=== PATIENT | female | born 1930 | race Caucasian/White ===

== ENCOUNTER 2018-10-11 18:02 | Inpatient (IN) ==
--- NOTE | 2018-10-11 18:45 | XRay Report ---
XR chest 1V portable CLINICAL HISTORY: Atypical chest pain COMPARISON STUDY: 01/27/2016 FINDINGS: The heart is mildly enlarged. An electronic device projects over the left upper chest. Ther e is no overt failure. There is no focal pulmonary consolidation. There are no pleural effusions.[ IMPRESSION: No active disease in the chest. Electronically signed by: Navi Alegre M.D. 10/11/2018 6:44 PM
[2018-10-11 18:50] LABS: Basophils # (auto) 0.01 K/uL (0-0.2); Basophils % (auto) 0.1 %; Eosinophils # (auto) 0.09 K/uL (0-0.5); Hematocrit (blood only) 36.9 % (37-47); Hemoglobin 13.1 g/dL (12.0-16.0); Immature Granulocytes # (auto) 0.01 K/uL (0.00-0.02); Immature Granulocytes % (auto) 0.1 %; Lymphocytes % (auto) 27.5 %; Mean Corpuscular Hgb Conc 35.5 g/dL (32-36); Mean Corpuscular Volume 93.2 fL (80-100); Mean Platelet Volume 11.1 fL (7.4-10.4); Monocytes # (auto) 1.31 K/uL (0.11-0.59); Monocytes % (auto) 13.8 %; Neutrophils # (auto) 5.45 K/uL (1.4-6.5); Neutrophils % (auto) 57.5 %; Platelet Count 176 K/uL (130-400); RDW Coefficient of Variation 12.2 % (11.5-14.5); RDW Standard Deviation 41.1 fL (36.4-46.3); Red Blood Count 3.96 M/uL (4.2-5.4); White Blood Count 9.47 K/uL (4.8-10.8)
[2018-10-11 19:24] LABS: Alanine Aminotransferase 22 U/L (12-78); Albumin Globulin Ratio 0.8 (0.9-2); Albumin Level 3.5 gm/dl (3.4-5.0); Alkaline Phosphatase 70 U/L (45-117); BUN Creatinine Ratio 26.4 (10-20); Bilirubin,Total 0.5 mg/dl (0.2-1); Blood Urea Nitrogen 22 mg/dl (7-18); Calcium 9.2 mg/dl (8.5-10.1); Carbon Dioxide 25 mmol/L (21-32); Chloride 103 mmol/L (98-107); Est GFR (Non-African American) 63.9; Globulin 4.1 gm/dl (2.5-4.0); Glucose 94 mg/dl (70-99); Sodium 136 mmol/L (136-145); Total Protein 7.6 gm/dl (6.4-8.2)
[2018-10-11 19:59] LABS: Magnesium 1.7 mg/dl (1.8-2.4)
[2018-10-11] MEDS ORDERED: ONDANSETRON INJ 2 MG/ML 2 ML VIAL IV PRN (21:16)
[2018-10-11] MEDS ORDERED: GABAPENTIN 400 MG CAP PO SCH (21:16)
[2018-10-11] MEDS ORDERED: MAGNESIUM HYDROXIDE SUSP 30 ML UDC PO PRN (21:16)
[2018-10-11] MEDS ORDERED: SODIUM CHLORIDE 0.9% 1000ML 1,000 ML IV SCH (21:16)
[2018-10-11] MEDS ORDERED: POLYETHYLENE (MIRALAX) 17 GM PACK PO PRN (21:16)
[2018-10-11] MEDS ORDERED: ALBUTEROL HFA 8 GM INHALER INH PRN (21:16)
[2018-10-11] MEDS ORDERED: ALUMINUM/MAGNESIUM SUSP 30 ML UDC PO PRN (21:16)
[2018-10-11] MEDS ORDERED: Heparin IV Low Dose *NO* Bolus IV ONE (21:30)
--- NOTE | 2018-10-11 21:37 | History & Physical Report ---
Date of Service October 11, 2018 Assessment & Plan (1) Darren-tachy syndrome: * Patient has been having tachyarrhythmias for the past 18 months or so * Holter monitor was placed as an outpatient and Dr. To's office * Cardiology will be consulted for consideration of pacemaker * Intermittent rhythm appears to be atrial fibrillation. We will start a weight-based heparin drip pending cardiology evaluation * Patient with bradycardia into the 40s so at this time no beta-merlyn will be given * Hemodynamically stable * Patient is symptomatic with lightheadedness and dizziness as well as weakness * Admit to telemetry and follow expectantly (2) Weakness: * Most likely secondary to cardiac arrhythmia * Will follow with cardiology * Patient will need PT/OT eval's prior to discharge * At this point there are no neurological deficits on exam and no apparent metabolic deficiencies * Follow clinically (3) GERD (gastroesophageal reflux disease): * Continue PPI and H2 merlyn * Patient currently asymptomatic (4) Dyslipidemia: * Continue atorvastatin (5) HTN (hypertension): * Blood pressure is probably well controlled per daughter * No outpatient medications are prescribed * We will follow vital signs while inpatient (6) Asthma: * No hypoxia or bronchospasms at the time of my examination * We will continue with albuterol and Flonase at home doses * Patient denies following with a web engineer * Follow clinically (7) DVT prophylaxis: * Heparin drip for cardiac arrhythmia * JOSE mike and SCDs ordered Please refer to Dr. Vega's addendum for any further recommendations. History of Present Illness Chief Complaint: Lightheadedness and dizziness Primary Care Provider: Annika To Attending: Dr. Vega This is a very pleasant 88-year-old female that has a past medical history including asthma, spinal stenosis, GERD, osteoporosis, dyslipidemia, osteoarthritis, sacroiliac inflammation, and hypertension. She presents today after having episodes of weakness and lightheadedness. Her daughter checked her heart rate and it was in the 180s at home. She was also noted to have bradycardia as low as the 40s. She had similar results in the emergency department. These seem to be exacerbated with activity. She has been followed by Dr. Adithya To in the outpatient setting and recently had a Holter monitor placed which has not been interrogated at this point. The daughter reports that these episodes of bradycardia and tachycardia began in 2017. Primarily she has had periods of bradycardia. The patient denies any chest pain or tightness. She has no back pain. She denies any history of atrial fibrillation or other conduction errors. She has never seen a machine bunch maker in the past but is scheduled to see Dr. Hammer at [facility]. The patient denies any nausea or vomiting. She has no diarrhea. She has no recent illness. She denies any ethanol use. She has no tobacco abuse history. 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 She does her own shopping and does notice that at [facility] she has h ad to rest because of lightheadedness. She has no other acute complaints at this time. Allergies Allergy/AdvReac Type Severity Reaction Status Date / Time mivacurium Allergy Unknown . Verified 10/11/18 19:00 Home Medications Home Medications Medication Instructions Recorded Confirmed Type Energy Focus 2 tab PO DAILY 10/11/18 10/11/18 History albuterol sulfate [ProAir HFA] 2 puff INHALATION Q6H PRN 10/11/18 10/11/18 History allopurinol 100 mg PO DAILY 10/11/18 10/11/18 History aspirin [Aspirin Low Dose] 81 mg PO DAILY 10/11/18 10/11/18 History atorvastatin 40 mg PO DAILY 10/11/18 10/11/18 History benzonatate 100 - 200 mg PO TID PRN 10/11/18 10/11/18 History brimonidine-timolol [Combigan] 1 drp OPHTHALMIC (EYE) BID 10/11/18 10/11/18 History cholecalciferol (vitamin D3) 2,000 unit PO DAILY 10/11/18 10/11/18 History diclofenac sodium 2 g TOPICAL QID 10/11/18 10/11/18 History fluticasone propionate 2 spray INTRANASAL DAILY 10/11/18 10/11/18 History gabapentin 400 mg PO BID 10/11/18 10/11/18 History gabapentin 800 mg PO HS 10/11/18 10/11/18 History omeprazole 40 mg PO DAILY 10/11/18 10/11/18 History prednisolone acetate 1 drp OPHTHALMIC (EYE) DAILY 10/11/18 10/11/18 History prednisone 5 mg PO DAILY 10/11/18 10/11/18 History ranitidine HCl 150 mg PO BID 10/11/18 10/11/18 History triamcinolone acetonide 1 applic TOPICAL BID PRN 10/11/18 10/11/18 History Past Med/Surg History Medical History Asthma (Chronic) "mild persistent" Spinal stenosis (Chronic) GERD (gastroesophageal reflux disease) (Chronic) Osteoporosis (Chronic) Dyslipidemia (Chronic) Urinary incontinence (Chronic) Osteoarthritis (Chronic) Sacroiliac inflammation (Chronic) HTN (hypertension) (Chronic) Surgical History H/O breast biopsy (Chronic) "benign" H/O colonoscopy (Chronic) S/P partial hysterectomy (Chronic) Social History Contact Center Consultant Required: No Beliefs That Will Affect Care: None Current Living Situation: Alone Current Living Situation Comment: daughter does heavy cleaning current occupational status: unemployed Other Information That Helps Us Care for You: No Feels Safe at Home: Yes Safety Concerns: Feels Safe At This Time Smoking Status: Never smoker Hx Alcohol Use: No Hx Substance Use: No well-balanced diet: daily or most days during the past year weight has: remained stable Review of Systems All systems reviewed & are unremarkable except as noted in HPI & below Physical Exam Vital Signs (Past 24 Hours): Last Vital Signs Temp 36.4 C L 10/11/18 18:03 Pulse 87 10/11/18 21:06 Resp 27 H 10/11/18 21:06 BP 112/79 10/11/18 21:06 Pulse Ox 94 10/11/18 21:06 Physical Exam: GENERAL : No acute distress EYES: No icterus, gaze conjugate. The right pupil is larger than the left pupil. 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 No facial droop NECK: Supple LUNGS: CTA B/L, no wheezes, rales or rhonchi HEART: Regular, tachycardic in the 140s at the time of my exam with what appears to be intermittent atrial fibrillation. ABDOMEN: Soft, NT, ND, BS Present EXTREMITIES: No LE edema, pedal pulses intact NEURO: A&OX3. No facial droop. PERRLA. No pronator drift. Right pupil is 3 mm left pupil is 2 mm. Patient has no vision in the left eye. Tongue is midline. Strength is equal and appropriate with upper and lower extremities bilaterally. Gait and Romberg are deferred. Results & Data Laboratory Results Abnormal lab results 10/11/18 10/11/18 10/11/18 Range/Units 18:40 18:40 19:30 RBC 3.96 L (4.2-5.4) M/uL Hct 36.9 L (37-47) % MPV 11.1 H (7.4-10.4) fL [place] # (Auto) 1.31 H (0.11-0.59) K/uL BUN 22 H (7-18) mg/dl BUN/Creatinine Ratio 26.4 H (10-20) Magnesium 1.7 L (1.8-2.4) mg/dl Globulin 4.1 H (2.5-4.0) gm/dl Albumin/Globulin Ratio 0.8 L (0.9-2) Diagnostic Findings XR chest 1V portable CLINICAL HISTORY: Atypical chest pain COMPARISON STUDY: 01/27/2016 FINDINGS: The heart is mildly enlarged. An electronic device projects over the left upper chest. There is no overt failure. There is no focal pulmonary consolidation. There are no pleural effusions.[ IMPRESSION: No active disease in the chest. Electronically signed by: Navi Alegre M.D. 10/11/2018 6:44 PM Code Status & VTE Plan Code Status Level I full code VTE Prophylaxis Plan VTE Prophylaxis will be ordered: Yes Reason for no VTE mechanical prophylaxis: Treatment not indicated Critical Care Time Critical Care Time: No Supervising Physician Co-Signing Physician Notes Care coordinated with Isaac Spencer PA-C. Agree with able note. Patient seen and examined. Please refer to her notes for full details. Vital signs reviewed. Physical exam: General exam: Alert and oriented. Not in acute distress. CVS: S1 and S2 heard, bradycardia regular rate , no murmurs. RS: Clear to auscultation, no wheezing or crackles. ABD: Soft, bowel sounds present, nontender, no distention. MANAGING CONSULTANT CLINICAL PROFESSOR: Nonfocal. EXT: No edema, no erythema. Labs: Reviewed. Assessment and plan: 88F presents with ongoing lightheadedness and weakness. Having bradycardia for sometime.Recently was placed on holter by PCP. TOday was feeling lightheaded and when daughter checked her pulse it was in 160's. Currently Heart rates in 50's. Tachy Darren syndrome will monitor in tele plan top give iv adenosine if becomes tachycardic echo cardiology consulted for possible pacemaker. HTN currently not on any meds will monitor Other diagnosis and plan of care as per Isaac Spencer PA-C. Shukri chandler MD.
[2018-10-11] MEDS: MAGNESIUM SULFATE / D5W 1 GM/100 ML BAG IV SCH ×2 (21:56→22:34)
[2018-10-11] MEDS: GABAPENTIN 400 MG CAP PO SCH (21:57)
[2018-10-11] MEDS ORDERED: COMBIGAN~ORDER AWAITING ACTION SCH (22:00)
[2018-10-11] MEDS ORDERED: HEPARIN 25000 UNIT/500 ML D5W IV ONE (22:31)
[2018-10-11] MEDS: Heparin Adult LOW DOSE Wt-Based Dextrose 5% 25,000 units/500 mL IV SCH ×2 (22:48→23:05)
[2018-10-11 23:07] LABS: INR 1.1 (0.9-1.1); Partial Thromboplastin Time 26.1 Seconds (21.0-31.0); Prothrombin Time 11.5 Seconds (9.0-12.0)
--- NOTE | 2018-10-12 00:28 | Emergency Department Note ---
Entered by Eren Yi acting as a scribe for Massimo Mirza MD History of Present Illness General Chief complaint: Cardiac Assessment Stated complaint: TACHYCARDIA, CARDIAC ASSESSMENT Time Seen by Provider: 10/11/18 18:07 Source: patient and family Limitations: no limitations History of Present Illness Provider complaint: Tachycardia Onset (ago): hour(s) Location: chest Pain Consistency: + intermittent Quality: + other (tachycardia) Associated symptoms: no chest pain and no shortness of breath Treatments prior to arrival: none The patient is an 88 year old female who presents to the Emergency Room with complaints of intermittent bouts of tachycardia that began this afternoon. The patient's daughter notes that the patient has been dealing with bradycardia and hypotension for the past several weeks. She saw her PCP at the beginning of last week and she was instructed to stop one of her blood pressure medications. The daughter cannot remember the name of the medicine that was stopped. She notes that the patient has been complaining of dizziness for the past couple of weeks, and the patient herself states that she has been feeling "weak and tired" today. She does endorse feeling near syncopal as well. Upon EMS arrival they found the patient to be tachycardic into the 170s and appeared to be in a SVT. As the patient was on the monitor in the ED her pulse was jumping from the 60s to 170s randomly. When her heart beat was tachycardic the patient was asked if she felt different and she states "I just feel tired." The daughter adds that the patient had a gout flair recently and was started on Gout medication and Prednisone. She is currently wearing a Halter Monitor as well. She has no history of cardiac disease. Home Medications Home Medications Medication Instructions Recorded Confirmed Type Energy Focus 2 tab PO DAILY 10/11/18 10/11/18 History albuterol sulfate [ProAir HFA] 2 puff INHALATION Q6H PRN 10/11/18 10/11/18 History allopurinol 100 mg PO DAILY 10/11/18 10/11/18 History aspirin [Aspirin Low Dose] 81 mg PO DAILY 10/11/18 10/11/18 History atorvastatin 40 mg PO DAILY 10/11/18 10/11/18 History benzonatate 100 - 200 mg PO TID PRN 10/11/18 10/11/18 History brimonidine-timolol [Combigan] 1 drp OPHTHALMIC (EYE) BID 10/11/18 10/11/18 History cholecalciferol (vitamin D3) 2,000 unit PO DAILY 10/11/18 10/11/18 History diclofenac sodium 2 g TOPICAL QID 10/11/18 10/11/18 History fluticasone 2 spray INTRANASAL DAILY 10/11/18 10/11/18 History gabapentin 400 mg PO BID 10/11/18 10/11/18 History gabapentin 800 mg PO HS 10/11/18 10/11/18 History omeprazole 40 mg PO DAILY 10/11/18 10/11/18 History prednisolone acetate 1 drp OPHTHALMIC (EYE) DAILY 10/11/18 10/11/18 History prednisone 5 mg PO DAILY 10/11/18 10/11/18 History ranitidine HCl 150 mg PO BID 10/11/18 10/11/18 History triamcinolone acetonide 1 applic TOPICAL BID PRN 10/11/18 10/11/18 History Allergies Allergy/AdvReac Type Severity Reaction Status Date / Time mivacurium Allergy Unknown . 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 and A total of 10 systems reviewed and were otherwise negative Physical Exam Vital Signs Vital Signs - 24 hr 10/11/18 18:03 10/11/18 18:28 10/11/18 19:00 Temperature 36.4 C L Temperature Source Oral Sepsis Recent Fever Within 48 Hours No Sepsis Action Taken by Nursing No Action Required Pulse Rate 70 Pulse Rate [Left Finger] 58 L Pulse Rhythm [Left Finger] Pulse Strength [Left Finger] Respiratory Rate 16 20 Respiratory Effort / Characteristics Non-Labored Respiratory Depth Normal Respiratory Pattern Blood Pressure 193/79 H Blood Pressure [Left Arm] 135/77 Blood Pressure [Right Arm] Blood Pressure Mean 117 Blood Pressure Mean [Left Arm] 96 Blood Pressure Mean [Right Arm] Blood Pressure Position [Left Arm] Blood Pressure Position [Right Arm] Pulse Oximetry 99 99 96 Oxygen Delivery Method Room Air Room Air Room Air 10/11/18 19:17 10/11/18 20:00 10/11/18 20:32 Temperature Temperature Source Sepsis Recent Fever Within 48 Hours Sepsis Action Taken by Nursing Pulse Rate Pulse Rate [Left Finger] 60 62 Pulse Rhythm [Left Finger] Pulse Strength [Left Finger] Respiratory Rate 20 25 H Respiratory Effort / Characteristics Respiratory Depth Respiratory Pattern Blood Pressure Blood Pressure [Left Arm] 111/67 146/94 H Blood Pressure [Right Arm] Blood Pressure Mean Blood Pressure Mean [Left Arm] 81 111 Blood Pressure Mean [Right Arm] Blood Pressure Position [Left Arm] Blood Pressure Position [Right Arm] Pulse Oximetry 94 96 98 Oxygen Delivery Method Room Air Room Air Room Air 10/11/18 21:06 10/11/18 22:03 10/11/18 23:03 Temperature 36.4 C L 36.4 C L Temperature Source Oral Oral Sepsis Recent Fever Within 48 Hours Sepsis Action Taken by Nursing Pulse Rate 87 Pulse Rate [Left Finger] 58 L 51 L Pulse Rhythm [Left Finger] Regular Pulse Strength [Left Finger] Normal Respiratory Rate 27 H 20 18 Respiratory Effort / Characteristics Non-Labored Respiratory Depth Normal Respiratory Pattern Regular Blood Pressure 112/79 Blood Pressure [Left Arm] 121/75 Blood Pressure [Right Arm] 176/93 H 100/62 Blood Pressure Mean Blood Pressure Mean [Left Arm] 90 Blood Pressure Mean [Right Arm] 120 74 Blood Pressure Position [Left Arm] Lying Blood Pressure Position [Right Arm] Lying Lying Pulse Oximetry 94 93 95 Oxygen Delivery Method Room Air Room Air Room Air 10/12/18 00:10 Temperature Temperature Source Sepsis Recent Fever Within 48 Hours Sepsis Action Taken by Nursing Pulse Rate 53 L Pulse Rate [Left Finger] Pulse Rhythm [Left Finger] Pulse Strength [Left Finger] Respiratory Rate Respiratory Effort / Characteristics Respiratory Depth Respiratory Pattern Blood Pressure Blood Pressure [Left Arm] Blood Pressure [Right Arm] Blood Pressure Mean Blood Pressure Mean [Left Arm] Blood Pressure Mean [Right Arm] Blood Pressure Position [Left Arm] Blood Pressure Position [Right Arm] Pulse Oximetry Oxygen Delivery Method General: Non-ill appearing 88 year old female in no acute distress. HEENT: Normal cephalic atraumatic. Pupils are equal round and reactive to light. Extraocular movements are intact. Oropharynx is pink with moist mucous membranes. No swelling of the mouth lips or tongue. Neck: Supple with a midline trachea. No meningeal signs or stiffness, no JVD or bruits. No Stridor. Chest: Clear to auscultation bilaterally. No wheezes or rhonchi. No increased work of breathing. Heart: Intermittently tachycardic and then bradycardic with rapid narrow complex tachycardia on the monitor. Tachycardia resolves with cough. Abdomen: Soft nontender, nondistended without rebound guarding or rigidity. Extremities: No cyanosis clubbing or edema. No calf tenderness or assymetry. Spine/Back. Non tender to palpation. No CVA tenderness Skin: Good turgor without rashes. Neurologic exam: Cranial nerves two through 12 are intact. Motor and sensation are intact and symmetrical throughout. Course 1803: Past medical records reviewed. The patient was evaluated in room C12A, and a complete history and physical examination were performed. 1818: I reviewed the patient's case with Dr. Hou - Cardiologit. He suggests admitting the patient to medicine. He states that Adenosine could be used if needed. 1823: I reviewed the patient's case with Dr. [facility]. SHe will evaluate the patient for further management. 1918: [facility]. He will evaluated the patient for further treatment. 1920: I checked on the patient. Her heart rate is in the 60s. Administered Medications Gabapentin (Neurontin) 800 mg PO HS JACY Stop: 11/10/18 21:15 Last Admin: 10/11/18 21:57 Dose: Not Given Documented by: [id number] Sodium Chloride (Nss 1000ml) 1,000 mls @ 50 mls/hr IV .Q20H JACY Stop: 11/10/18 21:15 Last Admin: 10/11/18 21:57 Dose: 50 mls/hr Documented by: [id number] Heparin Sodium/Dextrose (Heparin Sodium/Dextrose) 25,000 units in 500 mls @ 13 mls/hr IV .Q24H JACY; Protocol Stop: 11/10/18 22:44 Last Admin: 10/11/18 23:05 Dose: 650 units/hr, 13 mls/hr Documented by: [id number] Cosigned by: [id number] Ranitidine HCl (Zantac) 150 mg PO BID JACY Stop: 11/10/18 21:15 Last Admin: 10/11/18 21:56 Dose: Not Given Documented by: [id number] Discontinued Medications Heparin Sodium/Dextrose (Heparin Sodium/Dextrose) Confirm Administered Dose 25,000 units IV .STK-MED ONE Stop: 10/11/18 22:32 Last Admin: 10/11/18 22:34 Dose: 13 units Documented by: [id number] Cosigned by: [id number] Magnesium Sulfate/Dextrose (Magnesium Sulfate / D5w) 1 gm in 100 mls @ 100 mls/hr IV Q1H JACY Stop: 10/11/18 23:44 Last Infusion: 10/11/18 23:36 Dose: 0 mls/hr Documented by: [id number] Admin: 10/11/18 22:34 Dose: 100 mls/hr Documented by: [id number] Infusion: 10/11/18 22:34 Dose: 100 mls/hr Documented by: [id number] Admin: 10/11/18 21:56 Dose: 100 mls/hr Documented by: [id number] Miscellaneous (Order Awaiting Action) 1 ea N/A QS JACY Stop: 11/10/18 21:59 Last Admin: 10/11/18 21:57 Dose: Not Given Documented by: [id number] Medical Decision Making Differential Diagnosis Differential Diagnosis includes: Tachy/Darren syndrome, SVT, arrhythmia, electrolyte or metabolic abnormality, thyroid disorder. Medical Records Attestation: I reviewed the patient's medical records. Home Medications Current Medication List: was personally reviewed by me Laboratory Data Attestation: I reviewed the patient's lab results. Result diagrams: 10/11/18 18:40 10/11/18 19:30 Lab Results 10/11/18 10/11/18 10/11/18 Range/Units 18:40 18:40 18:44 WBC 9.47 (4.8-10.8) K/uL RBC 3.96 L (4.2-5.4) M/uL Hgb 13.1 (12.0-16.0) g/dL Hct 36.9 L (37-47) % MCV 93.2 (80-100) fL MCH 33.1 (25-34) pg MCHC 35.5 (32-36) g/dL RDW Std Deviation 41.1 (36.4-46.3) fL RDW Coeff of Brayan 12.2 (11.5-14.5) % Plt Count 176 (130-400) K/uL MPV 11.1 H (7.4-10.4) fL Immature Gran % (Auto) 0.1 % Neut % (Auto) 57.5 % Lymph % (Auto) 27.5 % [place] % (Auto) 13.8 % Eos % (Auto) 1.0 % Baso % (Auto) 0.1 % Immature Gran # (Auto) 0.01 (0.00-0.02) K/uL Neut # (Auto) 5.45 (1.4-6.5) K/uL Lymph # (Auto) 2.60 (1.2-3.4) K/uL [place] # (Auto) 1.31 H (0.11-0.59) K/uL Eos # (Auto) 0.09 (0-0.5) K/uL Baso # (Auto) 0.01 (0-0.2) K/uL PT (9.0-12.0) Seconds INR (0.9-1.1) APTT (21.0-31.0) Seconds PTT Ratio Sodium 136 (136-145) mmol/L Potassium (3.5-5.1) mmol/L Chloride 103 (98-107) mmol/L Carbon Dioxide 25 (21-32) mmol/L Anion Gap 8.0 (3-11) BUN 22 H (7-18) mg/dl Creatinine 0.82 (0.6-1.2) mg/dl Est Cr Clr Drug Dosing Not Reportable Est GFR ( Amer) 74.0 Est GFR (Non-Af Amer) 63.9 BUN/Creatinine Ratio 26.4 H (10-20) Glucose 94 (70-99) mg/dl Calcium 9.2 (8.5-10.1) mg/dl Magnesium (1.8-2.4) mg/dl Total Bilirubin 0.5 (0.2-1) mg/dl AST (15-37) U/L ALT 22 (12-78) U/L Alkaline Phosphatase 70 (45-117) U/L POC Troponin I 0.03 (0-0.045) ng/ml Total Protein 7.6 (6.4-8.2) gm/dl Albumin 3.5 (3.4-5.0) gm/dl Globulin 4.1 H (2.5-4.0) gm/dl Albumin/Globulin Ratio 0.8 L (0.9-2) Lipase 89 (73-393) U/L 10/11/18 10/11/18 Range/Units 19:30 22:44 WBC (4.8-10.8) K/uL RBC (4.2-5.4) M/uL Hgb (12.0-16.0) g/dL Hct (37-47) % MCV (80-100) fL MCH (25-34) pg MCHC (32-36) g/dL RDW Std Deviation (36.4-46.3) fL RDW Coeff of Brayan (11.5-14.5) % Plt Count (130-400) K/uL MPV (7.4-10.4) fL Immature Gran % (Auto) % Neut % (Auto) % Lymph % (Auto) % [place] % (Auto) % Eos % (Auto) % Baso % (Auto) % Immature Gran # (Auto) (0.00-0.02) K/uL Neut # (Auto) (1.4-6.5) K/uL Lymph # (Auto) (1.2-3.4) K/uL [place] # (Auto) (0.11-0.59) K/uL Eos # (Auto) (0-0.5) K/uL Baso # (Auto) (0-0.2) K/uL PT 11.5 (9.0-12.0) Seconds INR 1.1 (0.9-1.1) APTT 26.1 (21.0-31.0) Seconds PTT Ratio 1.0 Sodium (136-145) mmol/L Potassium 4.0 (3.5-5.1) mmol/L Chloride (98-107) mmol/L Carbon Dioxide (21-32) mmol/L Anion Gap (3-11) BUN (7-18) mg/dl Creatinine (0.6-1.2) mg/dl Est Cr Clr Drug Dosing Est GFR ( Amer) Est GFR (Non-Af Amer) BUN/Creatinine Ratio (10-20) Glucose (70-99) mg/dl Calcium (8.5-10.1) mg/dl Magnesium 1.7 L (1.8-2.4) mg/dl Total Bilirubin (0.2-1) mg/dl AST 18 (15-37) U/L ALT (12-78) U/L Alkaline Phosphatase (45-117) U/L POC Troponin I (0-0.045) ng/ml Total Protein (6.4-8.2) gm/dl Albumin (3.4-5.0) gm/dl Globulin (2.5-4.0) gm/dl Albumin/Globulin Ratio (0.9-2) Lipase (73-393) U/L Imaging Data Attestation: I personally reviewed and interpreted this imaging study as follows: Radiologist's Impression: XR chest 1V portable CLINICAL HISTORY: Atypical chest pain COMPARISON STUDY: 01/27/2016 FINDINGS: The heart is mildly enlarged. An electronic device projects over the left upper chest. There is no overt failure. There is no focal pulmonary consolidation. There are no pleural effusions.[ IMPRESSION: No active disease in the chest. Electronically signed by: Navi Alegre M.D. 10/11/2018 6:44 PM ECG Data Attestation: I personally reviewed and interpreted this ECG as follows: Indication: tachycardia Rate (beats per minute): 142 Rhythm: other (Narrow complex tachycardia) Findings: no acute ischemic change Comparison ECG Date: from (01/26/2018) Change: the following changes noted (rate increased) Additional Comments: REPEAT EKG: Sinus bradycardia 61 bpm, no ischemic changes or ectopy. Blood Pressure Blood Pressure Findings: Normal blood pressure MDM Narrative This patient comes in as described above. He was placed in room C 12. She was brought in after feeling dizzy. She was noted to have a fast heart rate but broke out of it. It has been narrow complex about 160. Her daughter tells me that her heart rate has actually been running low and her blood pressures been low, so they stopped her KASI inhibitor. She denies any chest pain or shortness of breath. he has no focal complaints. While she was here her she was bradycardic and then she would have spells where her heart would go very fast there was narrow complex and was either rapid A. fib or possibly SVT she would pop in and out of it if she would cough or move. EKG does not suggest any ischemic changes. She has nothing suggest infection or sepsis. She has been on a Holter monitor and in fact is on one at present for the symptoms that have been yet to be defined. Chest x-ray does not suggest congestive heart failure, pneumonia, or pneumothorax. She has no electrolyte or metabolic abnormalities. I did discuss case Dr. Hou and he recommends that we admit her and do not give any ida blocking agents at this point as her underlying rhythm is bradycardic. She will likely need pacemaker from more of a tachybradycardia type issue with underlying A. fib. She was admitted for further treatment and evaluation. Impression & Plan Darren-tachy syndrome, Weakness, A-fib, Dizziness Discharge Plan Visit Data *Final* Discharge Date/Time: 10/11/18 21:06 Chief Complaint: Cardiac Assessment Stated Complaint: TACHYCARDIA, CARDIAC ASSESSMENT ED Provider: Massimo Mirza Discharge Problem: Darren-tachy syndrome, Weakness, A-fib, Dizziness Patient Disposition: Being Evaluated by Hospitalist Discharge Instructions Interventions: ED Discharge Assessment Last Done: 10/11/18 21:06 Discharge Problem: A-fib Qualifiers: Atrial fibrillation type: paroxysmal Qualified Code(s): I48.0 - Paroxysmal atrial fibrillation The scribe's documentation has been prepared under my direction and personally reviewed by me in its entirety. I confirm that the note above accurately reflects all work, treatment, procedures, and medical decision making performed by me.
[2018-10-12 06:17] LABS: Basophils # (auto) 0.01 K/uL (0-0.2); Basophils % (auto) 0.1 %; Eosinophils # (auto) 0.14 K/uL (0-0.5); Eosinophils % (auto) 1.9 %; Hematocrit (blood only) 34.9 % (37-47); Hemoglobin 12.2 g/dL (12.0-16.0); Immature Granulocytes # (auto) 0.02 K/uL (0.00-0.02); Immature Granulocytes % (auto) 0.3 %; Lymphocytes # (auto) 2.92 K/uL (1.2-3.4); Lymphocytes % (auto) 39.7 %; Mean Corpuscular Volume 93.1 fL (80-100); Mean Platelet Volume 10.8 fL (7.4-10.4); Monocytes % (auto) 12.2 %; Neutrophils # (auto) 3.37 K/uL (1.4-6.5); Neutrophils % (auto) 45.8 %; Platelet Count 192 K/uL (130-400); RDW Coefficient of Variation 12.2 % (11.5-14.5); RDW Standard Deviation 41.6 fL (36.4-46.3); Red Blood Count 3.75 M/uL (4.2-5.4); White Blood Count 7.36 K/uL (4.8-10.8)
[2018-10-12 06:56] LABS: BUN Creatinine Ratio 23.9 (10-20); Calcium 8.7 mg/dl (8.5-10.1); Creatinine Clr Calc Pharmacy 44.7 ml/min; Est GFR (African American) 85.2; Est GFR (Non-African American) 73.5; Magnesium 2.3 mg/dl (1.8-2.4); Potassium 3.8 mmol/L (3.5-5.1)
[2018-10-12 07:08] LABS: Partial Thromboplastin Ratio 1.5; Partial Thromboplastin Time 39.3 Seconds (21.0-31.0)
[2018-10-12] MEDS ORDERED: HEPARIN IV BOLUS 4,000 UNITS in SYRINGE 0 ML IV ONE (07:15)
--- NOTE | 2018-10-12 07:42 | XRay Report ---
SINGLE VIEW CHEST CLINICAL HISTORY: Atypical chest pain. FINDINGS: An AP, portable, upright chest radiograph is compared to study dated 10/11/2018. The examina tion is degraded by portable technique and patient rotation. An electronic device partially obscures the left mid chest. The heart is enlarged and there is atherosclerotic calcification of the thoracic aorta. The pulmonary vasculature is noncongested. Chronic interstitial thickening is similar to previ ous. There is mild bibasilar atelectasis. No airspace consolidation or large pleural effusion is iden tified. No pneumothorax is seen. The skeletal structures are osteopenic. The bony thorax is grossly i ntact. IMPRESSION: Cardiomegaly with no active disease in the chest. Electronically signed by: Isaac Madrigal M.D. 10/12/2018 7:40 AM
[2018-10-12] MEDS: BRIMONIDINE TARTRATE/TIMOLOL OP SCH ×2 (07:46→20:58)
[2018-10-12] MEDS: PANTOprazole 40 MG TAB PO SCH (07:47)
[2018-10-12] MEDS: predniSONE 5 MG TAB PO SCH (07:47)
[2018-10-12] MEDS: GABAPENTIN 400 MG CAP PO SCH ×3 (07:47→20:58)
[2018-10-12] MEDS: ATORVASTATIN 40 MG TAB PO SCH (07:47)
[2018-10-12] MEDS: ALLOPURINOL 100 MG TAB PO SCH (07:48)
[2018-10-12] MEDS: FLUTICASONE PROPIONATE NA SPR 16 GM BTL NAE SCH (07:48)
[2018-10-12] MEDS: ASPIRIN 81 MG ECTAB PO SCH (07:48)
[2018-10-12] MEDS: prednisoLONE acetate 1% OP SUSP 5 ML BTL OP SCH (07:48)
[2018-10-12] MEDS ORDERED: CHOLECALCIFEROL 1,000 UNITS TAB PO SCH (09:00)
--- NOTE | 2018-10-12 09:21 | Cardiology Consultation ---
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 Check TSH Resting echocardiography Refer to Electrophysiology Initiate beta-merlyn therapy post permanent pacemaker implantation (2) Cardiac murmur: Auscultation suggests aortic stenosis. Refer for resting echocardiogram (3) Dyslipidemia: Continue atorvastatin (4) HTN (hypertension): Labile blood pressure readings noted. Recommend following for now, initiating beta merlyn therapy post pacemaker implantation. Supervising Physician Co-Signing Physician Notes Cardiology attending: Pt seen and examined, agree with findings and assessment as per Steven Casas PA-C. Pt presented with SVT in 170's and converted to sinus bradycardia. Textbook tachy-darren syndrome. Unable to provide AV ida blocking agents given underlying bradycardia. So, will proceed with dual chamber PPM placement by our colleague Dr. Bergeron in the AM. NPO after midnight. History of Present Illness Reason for Consultation: Tachy-Darren Syndrome, atrial fibrillation Requesting Physician: RAMIREZ Spencer/Dr. Chapa Attending Physician: Thang Rizzo MD History of Present Illness History of Present Illness: Ms. Infante is a very pleasant 88-year-old female who is being seen at the request of Mr. Johanna PA-C and Dr. Chpaa. Reasons for consultation include Tachy-Bradycardia Syndrome and atrial fibrillation. Ms. Infante presented to [facility] on October 11, 2018 with complaints of weakness and lightheadedness. Her daughter, who was present towards the end of the consultation today, notes keeping heart rate records on her mother since June 2017. She notes observing elevated heart rate liliam dings into the 170 bpm range when her mother experienced what she refers to as terrible dizziness and lightheadedness spells which have been occurring over the last few months. She notes terrible fatigue with the spells though notes no significant palpitations on questioning other than perhaps a short bit of fluttering. The spells have been, a times, associated with near syncope however she has never experienced true syncope. The patient was admitted to telemetry monitoring with continuous telemetry monitoring revealing episodes of SVT complicated by periods of sinus bradycardia down to 38 bpm. Personal review of telemetry monitoring shows no overt atrial fibrillation. She denies exertional chest pain though notes being inactive and afraid of falling. She has stable exertional dyspnea. No resting or nocturnal dyspnea. No orthopnea or PND. No lower extremity peripheral edema. No abrupt weight changes. No recent fevers or chills. No recent colds or illnesses. No nausea, vomiting, or diarrhea. No melena, hematochezia, hematuria, or dysuria. No recent trips, travels, injuries, or periods of prolonged immobility. EKG on admission revealed sinus rhythm at 61 bpm with a first-degree AV block and a QTC of 384 ms. EKG this morning reveals sinus bradycardia at 45 bpm with a first- degree AV block and a QTc interval of 390. Resting echocardiography is pending at this time. 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 Father with metastatic throat cancer. One sister with lymphoma. She has 1 brother and 1 sister remaining. The brother lives in [place], without cardiac issues. The sister lives in [place], without cardiac issue. Social History: Lifelong non-smoker. No smokeless tobacco use. No alcohol. in 2005. Lives alone in [place]. Four children. One son lives in [place]. One son lives in [place]. One son lives in [place], [place]. Daughter lives in [place], [place]. Complete Review of Systems: Hard of hearing. Hearing aids. Glasses. Blind in the left eye. Glaucoma. Status post bilateral cataract extractions in 2009. Positive history of macular degeneration. Stage III chronic kidney disease. Bladder incontinence. She denies prior cardiac history other than having a heart murmur. She specifically denies history of CAD, IA, CHF, arrhythmias, rheumatic fever, or scarlet fever. She denies thyroid trouble. She denies history of diabetes mellitus. She denies bleeding issues. She denies history of TIA or CVA. Complete review of systems is otherwise as stated above, negative, noncontributory. Allergies Allergy/AdvReac Type Severity Reaction Status Date / Time mivacurium Allergy Unknown . Verified 10/11/18 19:00 Home Medications Home Medications Medication Instructions Recorded Confirmed Type Energy Focus 2 tab PO DAILY 10/11/18 10/11/18 History albuterol sulfate [ProAir HFA] 2 puff INHALATION Q6H PRN 10/11/18 10/11/18 History allopurinol 100 mg PO DAILY 10/11/18 10/11/18 History aspirin [Aspirin Low Dose] 81 mg PO DAILY 10/11/18 10/11/18 History atorvastatin 40 mg PO DAILY 10/11/18 10/11/18 History benzonatate 100 - 200 mg PO TID PRN 10/11/18 10/11/18 History brimonidine-timolol [Combigan] 1 drp OPHTHALMIC (EYE) BID 10/11/18 10/11/18 History cholecalciferol (vitamin D3) 2,000 unit PO DAILY 10/11/18 10/11/18 History diclofenac sodium 2 g TOPICAL QID 10/11/18 10/11/18 History fluticasone propionate 2 spray INTRANASAL DAILY 10/11/18 10/11/18 History gabapentin 400 mg PO BID 10/11/18 10/11/18 History gabapentin 800 mg PO HS 10/11/18 10/11/18 History omeprazole 40 mg PO DAILY 10/11/18 10/11/18 History prednisolone acetate 1 drp OPHTHALMIC (EYE) DAILY 10/11/18 10/11/18 History prednisone 5 mg PO DAILY 10/11/18 10/11/18 History ranitidine HCl 150 mg PO BID 10/11/18 10/11/18 History triamcinolone acetonide 1 applic TOPICAL BID PRN 10/11/18 10/11/18 History Patient History Medical History Asthma (Chronic) "mild persistent" Spinal stenosis (Chronic) GERD (gastroesophageal reflux disease) (Chronic) Osteoporosis (Chronic) Dyslipidemia (Chronic) Urinary incontinence (Chronic) Osteoarthritis (Chronic) Sacroiliac inflammation (Chronic) HTN (hypertension) (Chronic) Surgical History H/O breast biopsy (Chronic) "benign" H/O colonoscopy (Chronic) S/P partial hysterectomy (Chronic) Social History Communication Ability: Effective Beliefs That Will Affect Care: None Current Living Situation: Alone Current Living Situation Comment: daughter does heavy cleaning current occupational status: unemployed Other Information That Helps Us Care for You: No Feels Safe at Home: Yes Safety Concerns: Feels Safe At This Time Smoking Status: Never smoker Hx Alcohol Use: No Hx Substance Use: No well-balanced diet: daily or most days during the past year weight has: remained stable Physical Exam Vital Signs (Past 24 Hours): Last Vital Signs Temp 37.1 C 10/12/18 06:36 Pulse 50 L 10/12/18 06:36 Resp 22 10/12/18 06:36 BP 123/66 10/12/18 06:36 Pulse Ox 95 10/12/18 06:36 Physical Exam: General: A&Ox3. NAD. LAC COURTE OREILLES HEENT: Normocephalic. Atraumatic. PER. Conjunctiva pink, sclera clear. Neck: Transmitted systolic murmur to the base of the carotids. No JVD. No HJR. Heart: Regular at 54 bpm. Grade III/ systolic ejection murmur. Decreased S2. No S3. No rub. PMI is nondisplaced. Lungs: Clear to auscultation. Abdomen: +BS. Soft. Nontender. No masses or organomegaly. Extremities: No clubbing, cyanosis, or significant edema. Lymphedematous changes. Limited neurological examination is without focal deficits. Pulses: radial=2/4 bilaterally. Posterior tibial pulses are 2/4 on the right and 1/4 on the left. Results & Data Laboratory Results Laboratory Results - last 24 hr 10/11/18 10/11/18 10/11/18 18:40 18:40 18:44 WBC 9.47 RBC 3.96 L Hgb 13.1 Hct 36.9 L MCV 93.2 MCH 33.1 MCHC 35.5 RDW Std Deviation 41.1 RDW Coeff of Brayan 12.2 Plt Count 176 MPV 11.1 H Immature Gran % (Auto) 0.1 Neut % (Auto) 57.5 Lymph % (Auto) 27.5 [place] % (Auto) 13.8 Eos % (Auto) 1.0 Baso % (Auto) 0.1 Immature Gran # (Auto) 0.01 Neut # (Auto) 5.45 Lymph # (Auto) 2.60 [place] # (Auto) 1.31 H Eos # (Auto) 0.09 Baso # (Auto) 0.01 PT INR APTT PTT Ratio Sodium 136 Potassium Chloride 103 Carbon Dioxide 25 Anion Gap 8.0 BUN 22 H Creatinine 0.82 Est Cr Clr Drug Dosing Not Reportable Est GFR ( Amer) 74.0 Est GFR (Non-Af Amer) 63.9 BUN/Creatinine Ratio 26.4 H Glucose 94 Calcium 9.2 Magnesium Total Bilirubin 0.5 AST ALT 22 Alkaline Phosphatase 70 POC Troponin I 0.03 Total Protein 7.6 Albumin 3.5 Globulin 4.1 H Albumin/Globulin Ratio 0.8 L Lipase 89 10/11/18 10/11/18 10/12/18 19:30 22:44 05:49 WBC 7.36 RBC 3.75 L Hgb 12.2 Hct 34.9 L MCV 93.1 MCH 32.5 MCHC 35.0 RDW Std Deviation 41.6 RDW Coeff of Brayan 12.2 Plt Count 192 MPV 10.8 H Immature Gran % (Auto) 0.3 Neut % (Auto) 45.8 Lymph % (Auto) 39.7 [place] % (Auto) 12.2 Eos % (Auto) 1.9 Baso % (Auto) 0.1 Immature Gran # (Auto) 0.02 Neut # (Auto) 3.37 Lymph # (Auto) 2.92 [place] # (Auto) 0.90 H Eos # (Auto) 0.14 Baso # (Auto) 0.01 PT 11.5 INR 1.1 APTT 26.1 PTT Ratio 1.0 Sodium Potassium 4.0 Chloride Carbon Dioxide Anion Gap BUN Creatinine Est Cr Clr Drug Dosing Est GFR ( Amer) Est GFR (Non-Af Amer) BUN/Creatinine Ratio Glucose Calcium Magnesium 1.7 L Total Bilirubin AST 18 ALT Alkaline Phosphatase POC Troponin I Total Protein Albumin Globulin Albumin/Globulin Ratio Lipase 10/12/18 10/12/18 05:49 05:49 WBC RBC Hgb Hct MCV MCH MCHC RDW Std Deviation RDW Coeff of Brayan Plt Count MPV Immature Gran % (Auto) Neut % (Auto) Lymph % (Auto) [place] % (Auto) Eos % (Auto) Baso % (Auto) Immature Gran # (Auto) Neut # (Auto) Lymph # (Auto) [place] # (Auto) Eos # (Auto) Baso # (Auto) PT INR APTT 39.3 H PTT Ratio 1.5 Sodium 139 Potassium 3.8 Chloride 105 Carbon Dioxide 26 Anion Gap 8.0 BUN 17 Creatinine 0.73 Est Cr Clr Drug Dosing 44.7 Est GFR ( Amer) 85.2 Est GFR (Non-Af Amer) 73.5 BUN/Creatinine Ratio 23.9 H Glucose 83 Calcium 8.7 Magnesium 2.3 Total Bilirubin AST ALT Alkaline Phosphatase POC Troponin I Total Protein Albumin Globulin Albumin/Globulin Ratio Lipase
[2018-10-12] MEDS ORDERED: Nursing to Pharmacy Communication ONE (10:11)
[2018-10-12 13:48] LABS: Partial Thromboplastin Ratio 3.5
[2018-10-12 14:17] LABS: Partial Thromboplastin Time 95.3 Seconds (21.0-31.0)
[2018-10-12] MEDS: AREDS2 PO SCH (16:49)
--- NOTE | 2018-10-12 19:50 | Hospitalist Progress Note ---
Date of Service October 12, 2018 Assessment & Plan (1) Darren-tachy syndrome: Present on admission with lightheartedness and weakness Symptomatic SVT complicated by intermittent moderate bradycardia on admission Cardiology on board Heparin drip discontinued by cardio HR has been stable Plan for permanent pacemaker implantation Will make NPO after midnight ECHO showed no wall motion abnormality with EF 60-65 % (2) Weakness: Most likely secondary to cardiac arrhythmia PT/OT eval Fall precaution (3) GERD (gastroesophageal reflux disease): Continue PPI and H2 merlyn Stable (4) Dyslipidemia: Continue atorvastatin (5) HTN (hypertension): BP stable (6) Asthma: Asymptomatic Continue albuterol neb treatment Stable (7) DVT prophylaxis: Heparin drip d/c On JOSE hose and SCDs ordered CODE STATUS FULL CODE Subjective Pt was seen and examined Lying in bed with no distress Pt said that she feels fine Denies any chest pain, palpitation, dizziness and SOB Physical Exam Vital Signs (Past 24 Hours): Last Vital Signs Temp 36.8 C 10/12/18 19:32 Pulse 63 10/12/18 19:32 Resp 20 10/12/18 19:32 BP 131/75 10/12/18 19:32 Pulse Ox 93 10/12/18 19:32 Physical Exam: General- No acute distress Head- atraumatic Eyes- PERRL, EOMI, ENT- oropharynx clear Neck- supple, no JVD Lungs- clear to auscultation Heart- regular rhythm; +systolic murmur Abdomen- normal bowel sounds, soft, nontender Extremities- no calf tenderness Neuro- alert, oriented x 3; PERRL, EOMI; no facial palsy; no dysarthria Skin- warm & dry
[2018-10-13 07:27] LABS: Eosinophils % (auto) 1.9 %; Hematocrit (blood only) 35.3 % (37-47); Hemoglobin 12.3 g/dL (12.0-16.0); Immature Granulocytes # (auto) 0.01 K/uL (0.00-0.02); Immature Granulocytes % (auto) 0.2 %; Lymphocytes # (auto) 2.11 K/uL (1.2-3.4); Lymphocytes % (auto) 39.4 %; Mean Corpuscular Hgb Conc 34.8 g/dL (32-36); Mean Corpuscular Volume 93.9 fL (80-100); Mean Platelet Volume 10.9 fL (7.4-10.4); Monocytes # (auto) 0.61 K/uL (0.11-0.59); Monocytes % (auto) 11.4 %; Neutrophils # (auto) 2.53 K/uL (1.4-6.5); Neutrophils % (auto) 47.1 %; Platelet Count 175 K/uL (130-400); RDW Coefficient of Variation 12.2 % (11.5-14.5); RDW Standard Deviation 41.4 fL (36.4-46.3); Red Blood Count 3.76 M/uL (4.2-5.4); White Blood Count 5.36 K/uL (4.8-10.8)
[2018-10-13] MEDS ORDERED: MIDAZOLAM HCL 5 MG/ML 1 ML VIAL ONE (07:48)
[2018-10-13] MEDS ORDERED: fentaNYL citrate 100 MCG/2 ML VIAL ONE (07:48)
[2018-10-13] MEDS ORDERED: BACITRACIN INJ 50,000 UNIT VIAL ONE (07:48)
[2018-10-13] MEDS ORDERED: CEFAZOLIN 250 MG/ML 1 GM VIAL ONE (07:48)
[2018-10-13 07:51] LABS: BUN Creatinine Ratio 28.3 (10-20); Calcium 8.7 mg/dl (8.5-10.1); Creatinine Clr Calc Pharmacy 45.5 ml/min; Est GFR (African American) 86.7; Est GFR (Non-African American) 74.8
--- NOTE | 2018-10-13 08:18 | History & Physical Bridge Note ---
Date of Service October 13, 2018 History & Physical Bridge Note I have examined the patient, reviewed the History & Physical and in the interval since the performance of the History & Physical I have noted the following changes of clinical significance: Pt with TBS for a dual chamber pacemaker today; discussed the procedure and potential risks with the patient and her family today; consents obtained.
--- NOTE | 2018-10-13 08:19 | Pre Anesthesia Assessment ---
Date of Service October 13, 2018 Pre Sedation Assessment Vital Signs Temp Pulse Resp BP Pulse Ox 10/13/18 07:07 37 C 52 L 20 161/73 H 93 10/13/18 04:12 36.5 C 51 L 18 117/73 94 10/12/18 23:00 36.8 C 56 L 20 128/76 95 10/12/18 19:32 36.8 C 63 20 131/75 93 10/12/18 15:41 36.4 C L 60 18 146/81 H 94 10/12/18 12:00 36.4 C L 51 L 16 130/69 96 Cardiovascular + bradycardic Respiratory normal respiratory effort, lungs clear to auscultation Pre-Sedation Airway Assessment Smoking Status: Never smoker Hx Sleep Apnea: No Hx Difficult Intubation: No Short, Thick Neck: No Thyromental Distance: < 3.5 Finger Breadths Oral Cavity: + WNL Mallampati Class: II ASA: ASA3 Procedure Planning Contraindications for Sedation: none Current Medications Reviewed: Yes Notes The planned sedation has been discussed with the patient. Informed Consent was obtained. I have identified the patient, determined the appropriateness of sedation and have assessed the patient immediately prior to the procedure. All medicine(s) and interventions are by my order.
[2018-10-13] MEDS ORDERED: LIDOCAINE HCL 1% 20 ML VIAL ONE (09:36)
[2018-10-13] MEDS ORDERED: BUPIVACAINE 0.25% 30 ML VIAL ONE (09:36)
--- NOTE | 2018-10-13 09:47 | Post Anesthesia Assessment ---
Date of Service October 13, 2018 Post Sedation Assessment Vital Signs Temp Pulse Resp BP Pulse Ox 10/13/18 07:07 37 C 52 L 20 161/73 H 93 10/13/18 04:12 36.5 C 51 L 18 117/73 94 10/12/18 23:00 36.8 C 56 L 20 128/76 95 10/12/18 19:32 36.8 C 63 20 131/75 93 10/12/18 15:41 36.4 C L 60 18 146/81 H 94 10/12/18 12:00 36.4 C L 51 L 16 130/69 96 Recovery Score Activity: Moves 4 extremities Respiration: Deep Breath/Cough Circulation: +/-20% PreAnes Value Consciousness: Fully Awake Oxygen Saturation: > 92% On Room Air Discharge Sedation Level of Care: Fast Track Phase II Post Sedation Plan On clinical assessment, the patient appears to have tolerated the sedation without complications. Patient is recovering as anticipated. Patient will continue to be monitored by nursing and may be discharged when sedation discharge criteria are met per below protocol. Upon Completions of procedure and additional 15 minutes continue every 5 minute vital signs and the P.A.R. score; then discharge to a Phase I or Fast Track to Phase II per the following guidelines: * Discharge Patient to appropriate Phase II area if PAR is 8 or greater or return to pre- procedure baseline. The post - procedure orders will be as directed. * If PAR score is less than 8 or not return to pre-procedure baseline then patient will follow Phase I monitoring till PAR is reached for Phase II. The Phase I may be done in procedure room or may call to secure a Phase I area. * If naloxone or flumazenil are used for reversal, hold in Phase I for continued monitoring from when last reversal dose was given for a minimum of 60 minutes or longer pending the nurse and/or physician discretion of patient condition before discharge to Phase II. Please call the Sedation Physician to re-evaluate and complete post-note for discharge to Phase II area. Do NOT discharge from procedure sedation or Phase 1 until post- sedation evaluation note is complete by procedure /sedation MD Sedation Discharge Instructions to be given to the patient at discharge to home.
--- NOTE | 2018-10-13 09:48 | Operative Report ---
Post Operative Report Pre & Post Diagnosis TBS Operation Date: 10/13/18 12:00 <No data on this case meets the specified criteria> Procedure Operation Date: 10/13/18 12:00 Actual Procedures p Pacer with A/V Leads (Dual) - Pam Bergeron DO Surgeon Pam Bergeron, DO [employer] Washing none Estimated Blood Loss 25 Findings Consistent with Post-Op Diagnosis Specimens none Description of Procedure see official report I attest to the content of the Intraoperative Record and any orders documented therein. Any exceptions are noted below.
[2018-10-13] MEDS: FLUTICASONE PROPIONATE NA SPR 16 GM BTL NAE SCH (10:09)
[2018-10-13] MEDS: BRIMONIDINE TARTRATE/TIMOLOL OP SCH ×2 (10:09→21:20)
[2018-10-13] MEDS: VITAMIN D3: NON-FORMULARY PATIENT'S OWN MED PO SCH (10:10)
[2018-10-13] MEDS: ALLOPURINOL 100 MG TAB PO SCH (10:10)
[2018-10-13] MEDS: ASPIRIN 81 MG ECTAB PO SCH (10:10)
[2018-10-13] MEDS: PANTOprazole 40 MG TAB PO SCH (10:11)
[2018-10-13] MEDS: AREDS2 PO SCH ×2 (10:11→15:55)
[2018-10-13] MEDS: ATORVASTATIN 40 MG TAB PO SCH (10:11)
[2018-10-13] MEDS: GABAPENTIN 400 MG CAP PO SCH ×3 (10:11→21:22)
[2018-10-13] MEDS: prednisoLONE acetate 1% OP SUSP 5 ML BTL OP SCH (10:11)
[2018-10-13] MEDS: predniSONE 5 MG TAB PO SCH (10:11)
--- NOTE | 2018-10-13 14:12 | Hospitalist Progress Note ---
Date of Service October 13, 2018 Assessment & Plan (1) Darren-tachy syndrome: Present on admission with lightheartedness and weakness Symptomatic SVT complicated by intermittent moderate bradycardia on admission Cardiology on board Heparin drip discontinued by cardio HR has been stable S/P day #0 permanent pacemaker implantation ECHO showed no wall motion abnormality with EF 60-65 % Will get a CXR in am Continue monitor in tele (2) Weakness: Most likely secondary to cardiac arrhythmia Continue PT/OT eval Fall precaution (3) GERD (gastroesophageal reflux disease): Continue PPI and H2 merlyn Stable (4) Dyslipidemia: Continue atorvastatin (5) HTN (hypertension): BP stable (6) Asthma: Asymptomatic Continue albuterol neb treatment Stable (7) DVT prophylaxis: Heparin drip d/c On JOSE hose and SCDs ordered CODE STATUS FULL CODE Disposition Possible discharge in am if stable from cardiac standpoint Subjective Pt was seen and examined Lying in bed with no distress Pt said that she feels ok She just got back from the OR for the pacemaker placement Denies any chest pain, palpitation, dizziness and SOB Physical Exam Vital Signs (Past 24 Hours): Last Vital Signs Temp 37.4 C 10/13/18 11:47 Pulse 60 10/13/18 11:47 Resp 18 10/13/18 11:47 BP 91/58 L 10/13/18 11:47 Pulse Ox 96 10/13/18 11:47 Physical Exam: General- No acute distress Head- atraumatic Eyes- PERRL, EOMI, ENT- oropharynx clear Neck- supple, no JVD Lungs- clear to auscultation Chest- Left chest incision with dressing from the pacemaker placement Heart- regular rhythm; +systolic murmur Abdomen- normal bowel sounds, soft, nontender Extremities- no calf tenderness Neuro- alert, oriented x 3; PERRL, EOMI; no facial palsy; no dysarthria Skin- warm & dry
[2018-10-13] MEDS: dilTIAZem HCL 120 MG CAPCR PO SCH (15:55)
--- NOTE | 2018-10-13 16:13 | Cardiology Progress Note ---
Date of Service October 13, 2018 Assessment & Plan (1) Darren-tachy syndrome: Symptomatic SVT complicated by intermittent moderate bradycardia s/p dual chamber PPM placement, tolerated well still with PSVT but BP a little low will start cardizem po to help suppress PSVT cont to monitor overnight (2) Cardiac murmur: Auscultation suggests aortic stenosis. Refer for resting echocardiogram (3) Dyslipidemia: Continue atorvastatin (4) HTN (hypertension): Labile blood pressure readings noted. Recommend following for now, initiating beta merlyn therapy post pacemaker implantation. Subjective Pt seen and examined, s/p pacer. States that she feels well. No recurrent lightheaded spells. Denies cp, sob, palpitations or syncope. tele reviewed: paced rhythm with short runs of PSVT Review of Systems All systems reviewed & are unremarkable except as noted in HPI & below Physical Exam Vital Signs (Past 24 Hours): Last Vital Signs Temp 36.6 C 10/13/18 15:23 Pulse 60 10/13/18 15:23 Resp 15 10/13/18 15:23 BP 102/69 10/13/18 15:23 Pulse Ox 95 10/13/18 15:23 Physical Exam: General: Awake, alert and oriented x 3. No acute distress. HEENT: Normocephalic, atraumatic. Pupils equal, round and reactive to light and accommodation. Extraocular muscles are intact. Anicteric sclera. Moist mucous membranes. Neck: No JVD. No bruit. Cardiovascular: Regular. Positive S-4. Normal S-1 and S-2. No S-3. No murmurs or rubs. Pulmonary: Clear to auscultation B/L. No rales, rhonchi or wheezing Abdomen: Bowel sounds x 4, soft. No rebound, guarding or tenderness. No organomegaly. Extremities: No clubbing, cyanosis or edema. +2 pedal pulses bilaterally. Skin: Warm and dry.
[2018-10-13] MEDS ORDERED: ADENOSINE IV SOLN 3 MG/ML 2 ML VIAL IV ONE (18:21)
[2018-10-13] MEDS ORDERED: METOPROLOL TARTRATE 1 MG/ML VIAL IV ONE (18:32)
[2018-10-13] MEDS: METOPROLOL TARTRATE 25 MG TAB PO SCH ×2 (18:56→21:21)
[2018-10-13] MEDS ORDERED: METOPROLOL TARTRATE 1 MG/ML VIAL IV PRN (18:56)
--- NOTE | 2018-10-13 18:59 | Communication Note ---
Date of Service: October 13, 2018 Received paged from the nurse that pt was in SVT with HR above 160. EKG showed SVT. Adenosine 6mg IV x1 given. Rhythm broke to NSR after the adenosine. Pt d enies any chest pain, palpitation and SOB after converted back o NSR. She was very anxious. Case discussed with cardiology who recommended to start on metoprolol PO 12.5 mg QID. Lopressor 2.5 mg IV q4h prn adding for HR above 120. Continue monitor closely on telemetry. MD So
[2018-10-14] MEDS: ACETAMINOPHEN 325 MG TAB PO PRN (01:40)
[2018-10-14 05:44] LABS: Eosinophils % (auto) 1.1 %; Hematocrit (blood only) 33.3 % (37-47); Hemoglobin 11.5 g/dL (12.0-16.0); Immature Granulocytes # (auto) 0.02 K/uL (0.00-0.02); Immature Granulocytes % (auto) 0.2 %; Lymphocytes # (auto) 1.75 K/uL (1.2-3.4); Lymphocytes % (auto) 19.4 %; Mean Corpuscular Hgb Conc 34.5 g/dL (32-36); Mean Corpuscular Volume 94.3 fL (80-100); Mean Platelet Volume 10.5 fL (7.4-10.4); Monocytes # (auto) 1.12 K/uL (0.11-0.59); Monocytes % (auto) 12.4 %; Neutrophils # (auto) 6.03 K/uL (1.4-6.5); Neutrophils % (auto) 66.9 %; Platelet Count 165 K/uL (130-400); RDW Coefficient of Variation 12.2 % (11.5-14.5); RDW Standard Deviation 41.2 fL (36.4-46.3); Red Blood Count 3.53 M/uL (4.2-5.4); White Blood Count 9.02 K/uL (4.8-10.8)
[2018-10-14 06:16] LABS: Calcium 8.9 mg/dl (8.5-10.1); Creatinine Clr Calc Pharmacy 37.7 ml/min; Est GFR (African American) 68.9; Est GFR (Non-African American) 59.5; Potassium 4.4 mmol/L (3.5-5.1)
--- NOTE | 2018-10-14 07:00 | XRay Report ---
XR chest 2V routine CLINICAL HISTORY: post implant COMPARISON STUDY: Chest radiograph October 12, 2018. FINDINGS: Interval placement of a dual lead left subclavian pacemaker is noted. Lead tips project ove r the right atrial appendage and right ventricle. There is no pneumothorax or pleural effusion. There is no evidence for pulmonary edema. Moderate cardiomegaly is unchanged. No consolidation is identifi ed. IMPRESSION: No pneumothorax following placement of a dual-lead left subclavian pacemaker. Electronically signed by: Sergio Villa M.D. 10/14/2018 6:59 AM
[2018-10-14] MEDS: AREDS2 PO SCH ×2 (08:42→18:01)
[2018-10-14] MEDS: GABAPENTIN 400 MG CAP PO SCH ×3 (08:42→20:05)
[2018-10-14] MEDS: ASPIRIN 81 MG ECTAB PO SCH (08:42)
[2018-10-14] MEDS: PANTOprazole 40 MG TAB PO SCH (08:43)
[2018-10-14] MEDS: dilTIAZem HCL 120 MG CAPCR PO SCH (08:43)
[2018-10-14] MEDS: ATORVASTATIN 40 MG TAB PO SCH (08:43)
[2018-10-14] MEDS: ALLOPURINOL 100 MG TAB PO SCH (08:43)
[2018-10-14] MEDS: predniSONE 5 MG TAB PO SCH (08:43)
[2018-10-14] MEDS: BRIMONIDINE TARTRATE/TIMOLOL OP SCH ×2 (08:44→20:05)
[2018-10-14] MEDS: FLUTICASONE PROPIONATE NA SPR 16 GM BTL NAE SCH (08:46)
[2018-10-14] MEDS: prednisoLONE acetate 1% OP SUSP 5 ML BTL OP SCH (08:47)
[2018-10-14] MEDS: VITAMIN D3: NON-FORMULARY PATIENT'S OWN MED PO SCH (08:47)
--- NOTE | 2018-10-14 09:22 | Cardiology Progress Note ---
Date of Service October 14, 2018 Assessment & Plan (1) Darren-tachy syndrome: Symptomatic SVT complicated by intermittent moderate bradycardia s/p dual chamber PPM placement, tolerated well recurrent SVT last PM, broke with adenosine started on metoprolol and BP has remained stable will cont po cardizem will change metoprolol to 25mg po bid would like to remain on tele for another 24 hours to follow for recurrent episodes (2) Cardiac murmur: Auscultation suggests aortic stenosis. Refer for resting echocardiogram (3) Dyslipidemia: Continue atorvastatin (4) HTN (hypertension): Labile blood pressure readings noted. Recommend following for now, initiating beta merlyn therapy post pacemaker implantation. Subjective Pt seen and examined, states that she feels well today. Did go into SVT last PM, broke with adenosine. Beta merlyn started per my direction and no recurrence. Pt states that she did feel the episode and became lightheaded, as she has in the past. Otherwise, feeling well. Denies cp, sob or syncope. Tele reviewed: sinus/paced rhythm Review of Systems All systems reviewed & are unremarkable except as noted in HPI & below Physical Exam Vital Signs (Past 24 Hours): Last Vital Signs Temp 36.4 C L 10/14/18 07:09 Pulse 61 10/14/18 07:09 Resp 18 10/14/18 07:09 BP 105/68 10/14/18 07:09 Pulse Ox 97 10/14/18 07:09 Physical Exam: General: Awake, alert and oriented x 3. No acute distress. HEENT: Normocephalic, atraumatic. Pupils equal, round and reactive to light and accommodation. Extraocular muscles are intact. Anicteric sclera. Moist mucous membranes. Neck: No JVD. No bruit. Cardiovascular: Regular. Positive S-4. Normal S-1 and S-2. No S-3. No murmurs or rubs. Pulmonary: Clear to auscultation B/L. No rales, rhonchi or wheezing Abdomen: Bowel sounds x 4, soft. No rebound, guarding or tenderness. No organ omegaly. Extremities: No clubbing, cyanosis or edema. +2 pedal pulses bilaterally. Skin: Warm and dry.
[2018-10-14] MEDS: METOPROLOL TARTRATE 25 MG TAB PO SCH ×2 (09:44→20:05)
--- NOTE | 2018-10-14 13:19 | Cardiology Progress Note ---
Date of Service October 14, 2018 Subjective Pt reports minimal discomfort at incision site Physical Exam Vital Signs (Past 24 Hours): Last Vital Signs Temp 36.4 C L 10/14/18 07:09 Pulse 61 10/14/18 11:37 Resp 18 10/14/18 11:37 BP 109/73 10/14/18 11:37 Pulse Ox 95 10/14/18 11:37 aaox3, NAD NC/AT, EOMI Supple No JVD Nrl S1/S2, No murmur CTA b/l no w/r/r soft nt/nd no LE edema b/l skin intact no focal deficits left pectoral incision intact, no hematoma mild ecchymosis Results & Data Diagnostic Findings CXR: No PTX, leads in position Pacemaker Interrogation Today: Normal function ECG Additional Comments: AP VS
--- NOTE | 2018-10-14 14:13 | Operative Report ---
DATE OF OPERATION: 10/13/2018 PREOPERATIVE DIAGNOSIS: Tachybrady syndrome. POSTOPERATIVE DIAGNOSIS: Tachybrady syndrome. PROCEDURE: Dual chamber responsive permanent pacemaker under fluoroscopic guidance. SURGEON: Pam Bergeron DO. VOCATIONAL PSYCHOLOGIST: None. ANESTHESIA: Monitored conscious sedation administered under my supervision by Yokasta Khalil. Start time 8:30, end time 9:45, a total of 3 mg of Versed and 75 mcg of fentanyl. INTRAVENOUS FLUIDS: 31 mL. ANTIBIOTICS: 1 g of Ancef. COMPLICATIONS: None. CONDITION: Stable. URINE OUTPUT: None. SPECIMENS: None. FINDINGS: See below. DRAINS: None. BLOOD LOSS: Less than 20 mL. INDICATIONS: This is an 88-year-old female with past medical history of hypertension, hyperlipidemia, chronic kidney disease stage III, osteoarthritis, GERD and diverticulitis. She even has an episode of dizziness, saw her primary care physician. A Zio patch was ordered, but then she had profound dizziness, was admitted to [facility] and found to be bradycardic in the 40s, sinus. However, then on telemetry, she went into an SVT in the 140s. Due to her tachybrady syndrome, she was recommended a permanent pacemaker. CONSENT: Consent was obtained prior to the patient going to the Electrophysiology Lab. The patient was informed of the risks, benefits, and alternatives of the procedure. Risks include but not limited to sudden cardiac , cardiac arrhythmias, cerebrovascular accident, myocardial infarction, injury to blood vessels, chamber of the heart, lung, bleeding and infection. The patient understood these risks and agreed to the procedure as planned. Informed consent was obtained. DESCRIPTION OF THE PROCEDURE: The patient was brought into the Electrophysiology Lab in fasting state. She was connected to continuous environmental monitoring specialist. Timeout was performed to ensure the patient's identity and procedure correctly. The patient was prepped and draped over the left infraclavicular space in normal surgical standard fashion. Monitored conscious sedation was given throughout the procedure for the patient's comfort level. [place] precautions maintained throughout the procedure. A 10 mL of 1% lidocaine, bupivacaine mixture were given in the left deltopectoral groove. Incision was made in the left deltopectoral groove. Blunt dissection was performed down to identify the cephalic vein. The cephalic vein was identified and isolated using 0 silk ties. The vein was nicked with an 11 blade and a guidewire was inserted without any resistance. An 8-Angolan sheath was inserted with the guidewire without any resistance. Dilator was removed and a second guidewire was inserted through the 8-Angolan sheath to allow for retained venous access. The sheath was removed, flushed, dilator reinserted over it and then it was reinserted along the guidewire. The guidewire and dilator removed. The right ventricular pacing lead was then advanced into right ventricle and positioned in intraventricular apex under fluoroscopic guidance. There is adequate pacing and sensing thresholds and no diaphragmatic stimulation in high output pacing. The 8-Angolan sheath was peeled away and lead was fixated to pectoralis muscle using 0 silk suture. A second 8-Angolan sheath was inserted over the retained guidewire without any resistance. The guidewire and dilator removed. The right atrial lead was then advanced into right atrium and positioned in the right atrial appendage under fluoroscopic guidance. There was adequate pacing and sensing thresholds and no diaphragmatic stimulation in high output pacing. The 8-Angolan sheath was peeled away and lead was fixated to pectoralis muscle using 0 silk suture. The pacemaker pocket was created using blunt dissection over the pectoralis muscle within the pectoralis fascia. There was some backbleeding from the venous access site, so a pursestring using a 2-[address] needle was placed, which stopped that. The pocket was then flushed with copious amounts of bacitracin saline wash and inspected for hemostasis. The pulse generator was then attached to the leads making sure that the pins were in appropriate position, passed, set screw and set screws were all tightened. The pulse generator was then placed in the pocket making sure that the leads were lying flat beneath the device and a stay stitch using 0 silk suture was used to secure this pectoralis muscle. The incision was closed in a 3-layer fashion using a 2-0 Vicryl interrupted suture followed by a 3-0 Vicryl interrupted suture followed by a 4-0 Monocryl running stitch and Dermabond was applied followed by a pressure dressing. EQUIPMENT: 1. Pulse generator is a Medtronic [place] XT DR ANGELINA Ordonez, [id number], serial number [id number]. 2. Right atrial lead, Medtronic 5076-52 cm, serial number [id number]. 3. Right ventricular lead, Medtronic 5076-58 cm, serial number [id number]. INTRAOPERATIVE TESTIN. Right atrial lead: P-wave 2.2 millivolts, impedance 796 ohms, threshold 0.4 volts at 0.4 milliamps. 2. Right ventricular lead: R-wave 7.6 millivolts, impedance 1270 ohms, threshold 0.4 volts at 0.3 milliamps. FINAL PARAMETERS THROUGH THE DEVICE: 1. Right atrial lead: P waves 1.4 millivolts, impedance 779 ohms, threshold 0.5 volts at 0.4 milliseconds. 2. Right ventricular lead: R waves 12.1 millivolts, impedance 988 ohms, threshold 0.5 volts at 0.4 milliseconds. FINAL PARAMETERS: MVP-R 60/130, right atrial amplitude 3.5 volts, pulse width 0.4 milliseconds, sensitivity 0.3 millivolts. Right ventricular amplitude 3.5 volts, pulse width 0.4 milliseconds, sensitivity 1.2 millivolts. IMPRESSION: Successful implantation of a dual chamber responsive permanent pacemaker under fluoroscopic guidance secondary to tachybrady syndrome. PLAN: Monitor the patient overnight, a 12-lead ECG, chest x-ray. She is not allowed to lift left elbow or left shoulder for 1 month. She cannot lift more than 10 pounds with the left arm for 2 weeks. She can shower in 2 days, let water run over incision, do not scrub it. She should follow up in our [facility] on 10/23/2018 at 11:15 in the morning for a device and wound check and I will defer to primary Cardiology for starting most likely an AV ida merlyn such as metoprolol due to her paroxysmal atrial tachycardia. I attest to the content of the Intraoperative Record and any orders documented therein. Any exceptions are noted below. LIZBET
--- NOTE | 2018-10-14 20:17 | Hospitalist Progress Note ---
Date of Service October 14, 2018 Assessment & Plan (1) Bradycardia: Symptomatic bradycardia in 40's. Cardiology recommended. Dual chamber pacemaker placement performed by Dr. Gonzalez on 10/13/18. (2) SVT (supraventricular tachycardia): Intermittent episodes of SVT. Received IV adenosine. Currently receiving metoprolol and diltiazem. Continue cardiac monitoring. (3) Aortic stenosis: Grade III/ systolic murmur at base noted on exam. Echo showed heavily calcified aortic valve with reduced systolic excursion, moderate (aortic valve area 1.6 cm2). Follow. (4) Asthma: Stable. (5) Dyslipidemia: Continue atorvastatin. (6) DVT prophylaxis: No anticoagulants because of pacemaker insertion. SCD's. Ambulate. (7) Discharge planning issues: Anticipated discharge to home. Family Medicine follow-up with Dr. To. Subjective Recheck for arrhythmias and other problems. Pt seen in her room around 1110. Daughter visiting. Pacemaker placed for bradycardia. Mild postop discomfort. Episode of SVT yesterday- converted to NSR after IV adenosine. Feels well today. No chest pain, palpitations, SOB. Review of Systems No fever. No chest pain. No cough or SOB. No nausea, vomiting, diarrhea, melena, hematochezia. No urinary symptoms. Physical Exam Vital Signs (Past 24 Hours): Last Vital Signs Temp 36.7 C 10/14/18 19:08 Pulse 59 L 10/14/18 19:08 Resp 16 10/14/18 19:08 BP 103/65 10/14/18 19:08 Pulse Ox 96 10/14/18 19:08 Constitutional: no acute distress Respiratory: no respiratory distress Auscultation: lungs clear to auscultation bilaterally Cardiovascular: Rate/Rhythm: regular rate and regular rhythm Heart Sounds: + murmur (III/ systolic murmur at base); no gallop and no cardiac rub Vessels: no JVD Extremities: no calf tenderness and no edema Chest (Breasts): Additional Comments: pacemaker site left upper thorax without hematoma Gastrointestinal (Abdomen): normal bowel sounds, soft, nontender, no hepatosplenomegaly Musculoskeletal: Extremities: no cyanosis Skin: no rashes, warm and dry Psychiatric: Orientation: alert and oriented x 3 Results & Data Laboratory Results Laboratory Results - last 24 hr 10/14/18 10/14/18 05:31 05:31 WBC 9.02 RBC 3.53 L Hgb 11.5 L Hct 33.3 L MCV 94.3 MCH 32.6 MCHC 34.5 RDW Std Deviation 41.2 RDW Coeff of Brayan 12.2 Plt Count 165 MPV 10.5 H Immature Gran % (Auto) 0.2 Neut % (Auto) 66.9 Lymph % (Auto) 19.4 [place]bour % (Auto) 12.4 Eos % (Auto) 1.1 Baso % (Auto) 0.0 Immature Gran # (Auto) 0.02 Neut # (Auto) 6.03 Lymph # (Auto) 1.75 [place] # (Auto) 1.12 H Eos # (Auto) 0.10 Baso # (Auto) 0.00 Sodium 140 Potassium 4.4 Chloride 107 Carbon Dioxide 29 Anion Gap 4.0 BUN 27 H Creatinine 0.87 Est Cr Clr Drug Dosing 37.7 Est GFR ( Amer) 68.9 Est GFR (Non-Af Amer) 59.5 BUN/Creatinine Ratio 31.0 H Glucose 104 H Calcium 8.9
[2018-10-15] MEDS: VITAMIN D3: NON-FORMULARY PATIENT'S OWN MED PO SCH (08:07)
[2018-10-15] MEDS: AREDS2 PO SCH ×2 (08:07→15:49)
[2018-10-15] MEDS: prednisoLONE acetate 1% OP SUSP 5 ML BTL OP SCH (08:07)
[2018-10-15] MEDS: PANTOprazole 40 MG TAB PO SCH (08:08)
[2018-10-15] MEDS: predniSONE 5 MG TAB PO SCH (08:08)
[2018-10-15] MEDS: ALLOPURINOL 100 MG TAB PO SCH (08:08)
[2018-10-15] MEDS: ATORVASTATIN 40 MG TAB PO SCH (08:08)
[2018-10-15] MEDS: GABAPENTIN 400 MG CAP PO SCH ×3 (08:08→20:11)
[2018-10-15] MEDS: BRIMONIDINE TARTRATE/TIMOLOL OP SCH ×2 (08:08→20:11)
[2018-10-15] MEDS: METOPROLOL TARTRATE 25 MG TAB PO SCH ×2 (08:09→20:11)
[2018-10-15] MEDS: ASPIRIN 81 MG ECTAB PO SCH (08:09)
[2018-10-15] MEDS: dilTIAZem HCL 120 MG CAPCR PO SCH (08:09)
[2018-10-15] MEDS: FLUTICASONE PROPIONATE NA SPR 16 GM BTL NAE SCH (08:10)
--- NOTE | 2018-10-15 14:47 | Cardiology Progress Note ---
Date of Service October 15, 2018 Assessment & Plan (1) Darren-tachy syndrome: Symptomatic SVT complicated by intermittent moderate bradycardia s/p dual chamber PPM placement, tolerated well no further episodes of SVT would d/c on current doses of metoprolol and cardizem no role for systemic anticoagulation from cardiac standpoint (2) Cardiac murmur: Auscultation suggests aortic stenosis. Refer for resting echocardiogram (3) Dyslipidemia: Continue atorvastatin (4) HTN (hypertension): stable Subjective Pt seen and examined, without complaint. Denies cp, sob, palpitations, lightheadedness or dizziness. tele reviewed: sinus/paced rhythm without recurrent SVT Review of Systems All systems reviewed & are unremarkable except as noted in HPI & below Physical Exam Vital Signs (Past 24 Hours): Last Vital Signs Temp 36.7 C 10/15/18 11:27 Pulse 60 10/15/18 11:27 Resp 22 10/15/18 11:27 BP 102/64 10/15/18 11:27 Pulse Ox 94 10/15/18 11:27 Physical Exam: General: Awake, alert and oriented x 3. No acute distress. HEENT: Normocephalic, atraumatic. Pupils equal, round and reactive to light and accommodation. Extraocular muscles are intact. Anicteric sclera. Moist mucous membranes. Neck: No JVD. No bruit. Cardiovascular: irregularly irregular, unable to appreciate murmur, rub or gallop. Pulmonary: Clear to auscultation bilaterally. No rales, rhonchi, or wheezing. Abdomen: Bowel sounds x 4, soft. No rebound, guarding or tenderness. No organomegaly. Extremities: No clubbing, cyanosis or edema. +2 pedal pulses bilaterally. Skin: Warm and dry.
--- NOTE | 2018-10-15 14:48 | Cardiology Progress Note ---
Date of Service October 14, 2018 Physical Exam Vital Signs (Past 24 Hours): Last Vital Signs Temp 36.4 C L 10/14/18 07:09 Pulse 61 10/14/18 07:09 Resp 18 10/14/18 07:09 BP 105/68 10/14/18 07:09 Pulse Ox 97 10/14/18 07:09
[2018-10-15] MEDS: ACETAMINOPHEN 325 MG TAB PO PRN (18:15)
[2018-10-15] MEDS: DICLOFENAC SOD 1% GEL 100 GM TUBE EXT SCH (20:11)
--- NOTE | 2018-10-15 22:58 | Hospitalist Progress Note ---
Date of Service October 15, 2018 Assessment & Plan (1) Bradycardia: Symptomatic bradycardia in 40's. Cardiology recommended. Dual chamber pacemaker placement performed by Dr. Gonzalez on 10/13/18. (2) SVT (supraventricular tachycardia): Intermittent episodes of SVT. Received IV adenosine. Currently receiving metoprolol and diltiazem. Continue cardiac monitoring. (3) Aortic stenosis: Grade III/ systolic murmur at base noted on exam. Echo showed heavily calcified aortic valve with reduced systolic excursion, moderate (aortic valve area 1.6 cm2). Follow. (4) Asthma: Stable. (5) Dyslipidemia: Continue atorvastatin. (6) Knee pain: Chronic knee pain, followed by Rheum. Usually takes acetaminophen + diclofenac gel- ordered. (7) DVT prophylaxis: No anticoagulants because of pacemaker insertion. SCD's. Ambulate. (8) Discharge planning issues: Anticipated discharge to home. Family Medicine follow-up with Dr. To. Subjective Recheck for arrhythmias and other problems. Pt seen in her room around 1730. Daughter visiting. Mild discomfort at pacemaker site. No chest pain, palpitations, SOB. No nausea or vomiting. No diarrhea. No dysuria. Experiencing right knee pain- chronic problem. Physical Exam Vital Signs (Past 24 Hours): Last Vital Signs Temp 36.4 C L 10/15/18 19:03 Pulse 62 10/15/18 20:30 Resp 16 10/15/18 19:03 BP 129/80 10/15/18 20:00 Pulse Ox 94 10/15/18 19:03 Constitutional: no acute distress Respiratory: no respiratory distress Auscultation: lungs clear to auscultation bilaterally Cardiovascular: Rate/Rhythm: regular rate and regular rhythm Heart Sounds: + murmur (III/ systolic murmur at base); no gallop and no cardiac rub Vessels: no JVD Extremities: no calf tenderness and no edema Chest (Breasts): Chest: + pacemaker (site without hematoma or drainage) Gastrointestinal (Abdomen): normal bowel sounds, soft, nontender, no hepatosplenomegaly Musculoskeletal: Extremities: + lower leg abnormality (right knee: degenerative changes, small effusion, no erythema or warmth); no cyanosis Skin: no rashes, warm and dry Psychiatric: Orientation: alert and oriented x 3
[2018-10-16 07:25] VITALS: PULSE 60
[2018-10-16] MEDS: PANTOprazole 40 MG TAB PO SCH (08:51)
[2018-10-16] MEDS: prednisoLONE acetate 1% OP SUSP 5 ML BTL OP SCH (08:52)
[2018-10-16] MEDS: DICLOFENAC SOD 1% GEL 100 GM TUBE EXT SCH (08:52)
[2018-10-16] MEDS: METOPROLOL TARTRATE 25 MG TAB PO SCH (08:52)
[2018-10-16] MEDS: predniSONE 5 MG TAB PO SCH (08:52)
[2018-10-16] MEDS: ASPIRIN 81 MG ECTAB PO SCH (08:53)
[2018-10-16] MEDS: AREDS2 PO SCH (08:53)
[2018-10-16] MEDS: dilTIAZem HCL 120 MG CAPCR PO SCH (08:53)
[2018-10-16] MEDS: VITAMIN D3: NON-FORMULARY PATIENT'S OWN MED PO SCH (08:53)
[2018-10-16] MEDS: FLUTICASONE PROPIONATE NA SPR 16 GM BTL NAE SCH (08:53)
[2018-10-16] MEDS: ALLOPURINOL 100 MG TAB PO SCH (08:54)
[2018-10-16] MEDS: BRIMONIDINE TARTRATE/TIMOLOL OP SCH (08:54)
[2018-10-16] MEDS: GABAPENTIN 400 MG CAP PO SCH (08:54)
[2018-10-16] MEDS: ATORVASTATIN 40 MG TAB PO SCH (08:54)
--- NOTE | 2018-10-16 11:42 | Hospitalist Progress Note ---
Date of Service October 16, 2018 Assessment & Plan (1) Bradycardia: Symptomatic bradycardia in 40's. Cardiology consulted and recommended pacemaker insertion. Dual chamber pacemaker placement performed by Dr. Gonzalez on 10/13/18. (2) SVT (supraventricular tachycardia): Intermittent episodes of SVT. Received IV adenosine; started on metoprolol and diltiazem. Arrhythmias controlled by time of discharge. (3) Aortic stenosis: Grade III/ systolic murmur at base noted on exam. Echo showed heavily calcified aortic valve with reduced systolic excursion, moderate (aortic valve area 1.6 cm2). Follow. (4) Asthma: Stable. (5) Dyslipidemia: Continue atorvastatin. (6) Knee pain: Chronic knee pain, followed by Rheumatology. Improved with acetaminophen + diclofenac gel. (7) DVT prophylaxis: No anticoagulants because of pacemaker insertion. SCD's. Ambulate. (8) Discharge planning issues: Discharge to home. Family Medicine follow-up with Dr. To. Subjective Recheck for arrhythmias and other problems. Pt seen in her room around 1130. Daughter visiting. Minimal discomfort at pacemaker site. Right knee pain improved. No chest pain, palpitations, SOB. No nausea or vomiting. No diarrhea. No dysuria. Telemetry data reviewed with security monitor-no further arrhythmias. Physical Exam Vital Signs (Past 24 Hours): Last Vital Signs Temp 36.5 C 10/16/18 07:25 Pulse 60 10/16/18 07:25 Resp 18 10/16/18 07:25 BP 117/74 10/16/18 07:25 Pulse Ox 95 10/16/18 07:25 Constitutional: no acute distress Respiratory: no respiratory distress Auscultation: lungs clear to auscultation bilaterally Cardiovascular: Rate/Rhythm: regular rate and regular rhythm Heart Sounds: + murmur (III/ systolic murmur at base); no gallop and no cardiac rub Vessels: no JVD Extremities: no calf tenderness and no edema Chest (Breasts): Chest: + pacemaker (site without hematoma or drainage) Gastrointestinal (Abdomen): normal bowel sounds, soft, nontender, no hepatosplenomegaly Musculoskeletal: Extremities: + lower leg abnormality (right knee: degenerative changes, small effusion, no erythema or warmth); no cyanosis Skin: no rashes, warm and dry Psychiatric: Orientation: alert and oriented x 3
[2018-10-16 12:16] VITALS: BP 102/67; TEMP 97.3; O2SAT 98
--- NOTE | 2018-10-19 04:11 | Discharge Summary ---
Date of Service Date of admission: 10/11/18 Date of discharge: 10/16/18 Admission HPI Per Admitting Provider Attending: Dr. Vega This is a very pleasant 88-year-old female that has a past medical history including asthma, spinal stenosis, GERD, osteoporosis, dyslipidemia, o steoarthritis, sacroiliac inflammation, and hypertension. She presents today after having episodes of weakness and lightheadedness. Her daughter checked her heart rate and it was in the 180s at home. She was also noted to have bradycardia as low as the 40s. She had similar results in the emergency department. These seem to be exacerbated with activity. She has been followed by Dr. Adithya To in the outpatient setting and recently had a Holter monitor placed which has not been interrogated at this point. The daughter reports that these episodes of bradycardia and tachycardia began in 2017. Primarily she has had periods of bradycardia. The patient denies any chest pain or tightness. She has no back pain. She denies any history of atrial fibrillation or other conduction errors. She has never seen a quick sketch artist in the past but is scheduled to see Dr. Hammer at [facility]. The patient denies any nausea or vomiting. She has no diarrhea. She has no recent illness. She denies any ethanol use. She has no tobacco abuse history. 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 She does her own shopping and does notice that at [facility] she has had to rest because of lightheadedness. She has no other acute complaints at this time. Admission Exam Per Admitting Provider GENERAL : No acute distress EYES: No icterus, gaze conjugate. The right pupil is larger than the left pupil. 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 No facial droop NECK: Supple LUNGS: CTA B/L, no wheezes, rales or rhonchi HEART: Regular, tachycardic in the 140s at the time of my exam with what appears to be intermittent atrial fibrillation. ABDOMEN: Soft, NT, ND, BS Present EXTREMITIES: No LE edema, pedal pulses intact NEURO: A&OX3. No facial droop. PERRLA. No pronator drift. Right pupil is 3 mm left pupil is 2 mm. Patient has no vision in the left eye. Tongue is midline. Strength is equal and appropriate with upper and lower extremities bilaterally. Gait and Romberg are deferred. Principal Diagnosis tachy-thien syndrome Discharge Data Allergies Allergy/AdvReac Type Severity Reaction Status Date / Time mivacurium Allergy Unknown . Verified 10/11/18 19:00 Consultations 10/11/18 19:02 ED Decision to Admit Stat 10/11/18 21:16 Consult Cardiology Routine Consult Case Management - Discharge Planning Routine 10/12/18 13:20 Consult Cardiac Electrophysiology Routine Procedures Performed Operation Date: 10/13/18 12:00 Actual Procedures p Pacer with A/V Leads (Dual) - Pam Bergeron DO Ordered Studies 10/13/18 06:45 EP Lab Images for PACS ONCE Hospital Course (1) Bradycardia: Presented with symptomatic bradycardia in 40's. Cardiology consulted and recommended pacemaker insertion. Dual chamber pacemaker placement performed by Dr. Gonzalez on 10/13/18. (2) SVT (supraventricular tachycardia): Intermittent episodes of SVT. (There was a question of atrial fibrillation, but after subsequent review by Cardiology team it was felt that AF did not occur.) Received IV adenosine; started on metoprolol and diltiazem. Arrhythmias controlled by time of discharge. (3) Aortic stenosis: Grade III/ systolic murmur at base noted on exam. Echo showed heavily calcified aortic valve with reduced systolic excursion, moderate (aortic valve area 1.6 cm2). Follow. (4) Asthma: Stable. (5) Dyslipidemia: Continue atorvastatin. (6) Knee pain: Chronic knee pain, followed by Rheumatology. Improved with acetaminophen + diclofenac gel. (7) DVT prophylaxis: No anticoagulants because of pacemaker insertion. SCD's. Ambulate. (8) Discharge planning issues: Discharged to home. Family Medicine follow-up with Dr. To. Total Time Total Time Spent Total Time Spent (In Minutes): 40 Discharge Plan Discharge Items Patient Disposition: Home - Self-Care Reason For Visit: irregular heart beat Discharge Diagnosis: irregular heart beat- sometimes too slow, sometimes too fast Condition: Good Discharge Goals: Improve disease control Activity: As commented below Activity Comment: do not lift the left elbow over the left shoulder for 1 month Lifting: No more than 10 pounds Lifting Comment: do not lift more than 10 pounds with the left arm for 2 weeks Bathing Comment: you can shower, but do not scrub the incision-let water run over it Non-emergency contact: Primary Care Provider, Hospitalist and Head Of Maintenance Call non-emergency contact if: you have any medication questions, your symptoms worsen and your temperature is above 101 Follow-up/Referrals: Annika To MD [Primary Care Provider] - (10/19/2018 1:00 PM Elisa Lawson MD (covering for Dr. To) Internal Medicine [facility]) Pam Bergeron DO [Physician] - ( Date & Time 10/23/2018 11:15 AM [facility] Cardiology, [facility]) Diet: Heart Healthy Add Provider Instructions: device and wound check at [facility] on FridayOctober 23 at 11:15am OTHER INSTRUCTIONS: Seek medical attention if you have: * temperature above 101 * chest pain or trouble breathing * abdominal pain, nausea, vomiting * diarrhea, dark stools or bloody stools * significant drainage from pacemaker incision * any unanswered questions or concerns Call 911 if symptoms are severe. Call if you have any questions or problems. My cell # is [phone]. You can also reach a [facility] hospitalist on duty at [facility] 24 hours a day by calling [phone]. Prescriptions: New diltiazem HCl 120 mg Capsule,Extended Release 24hr 120 mg PO QAM Qty: 30 RF: 5 metoprolol tartrate 25 mg Tablet 25 mg PO BID Qty: 60 RF: 5 Continued atorvastatin 40 mg Tablet 40 mg PO DAILY RF: 0 gabapentin 400 mg Capsule 400 mg PO BID RF: 0 gabapentin 400 mg Capsule 800 mg PO HS RF: 0 prednisone 5 mg Tablet 5 mg PO DAILY RF: 0 allopurinol 100 mg Tablet 100 mg PO DAILY RF: 0 omeprazole 40 mg Capsule,Delayed Release(Dr/Ec) 40 mg PO DAILY RF: 0 aspirin [Aspirin Low Dose] 81 mg Tablet,Delayed Release (Dr/Ec) 81 mg PO DAILY RF: 0 triamcinolone acetonide 0.1 % Cream 1 applic TOPICAL BID PRN (Reason: DERMATITIS) RF: 0 prednisolone acetate 1 % Drops,Suspension 1 drp OPHTHALMIC (EYE) DAILY RF: 0 benzonatate 100 mg Capsule 100 - 200 mg PO TID PRN (Reason: Cough) RF: 0 ranitidine HCl 150 mg Tablet 150 mg PO BID RF: 0 albuterol sulfate [ProAir HFA] 90 mcg/actuation Hfa Aerosol Inhaler 2 puff INHALATION Q6H PRN (Reason: Wheezing) RF: 0 fluticasone propionate 50 mcg/actuation [place],Suspension 2 spray INTRANASAL DAILY RF: 0 Combigan 0.2-0.5 % Drops 1 drp OPHTHALMIC (EYE) BID RF: 0 diclofenac sodium 1 % Gel 2 g TOPICAL QID RF: 0 cholecalciferol (vitamin D3) 2,000 unit Capsule 2,000 unit PO DAILY RF: 0 Energy Focus 2 tab PO DAILY RF: 0 Stand-Alone Forms: [facility], [facility] Discharge Orders: Discharge Order (Routine); Ordered 10/16/18 Ordered By: Torres Galo Admission Data Admit Date/Time: 10/11/18 20:11 Attending Provider: Torres Galo Admit Provider: Shukri Vega Primary Care Provider: Annika To Other Providers: Thang Rizzo ; Shukri Vega ; Wade Hou ; Pam Bergeron Service: Telemetry Other Interventions: Discharge Summary Assessment (RN) Last Done: 10/16/18 13:40 DC Date/Time DO NOT enter until pt leaves facility: 10/16/18 14:05
== END 2018-10-16 14:05 | disposition home health service (06) | DRG 244 ==
LOC: ED 18:02 → SUATTDRO 20:11 → 2S 20:11 → 2N 10-15 20:05

== ENCOUNTER 2019-02-16 06:51 | Observation (INO) ==
[~2019-02-16 06:51] MED LIST: CEFAZOLIN 1000MG 1,000 MG/7.5 ML SYR IV SCH
--- NOTE | 2019-02-16 08:06 | History & Physical Bridge Note ---
Date of Service February 16, 2019 History & Physical Bridge Note I have examined the patient, reviewed the History & Physical and in the interval since the performance of the History & Physical I have noted the following changes of clinical significance: no changes noted
--- NOTE | 2019-02-16 08:07 | Pre Anesthesia Assessment ---
Date of Service February 16, 2019 Pre Sedation Assessment Vital Signs Temp Pulse Resp BP Pulse Ox 02/16/19 07:21 36.5 C 65 16 177/80 H 95 Cardiovascular RRR, no murmur, no edema Respiratory normal respiratory effort, lungs clear to auscultation Pre-Sedation Airway Assessment Smoking Status: Never smoker Hx Sleep Apnea: No Hx Difficult Intubation: No Short, Thick Neck: Yes Thyromental Distance: < 3.5 Finger Breadths Oral Cavity: + WNL Mallampati Class: III ASA: ASA3 NPO Status Date of Last Intake of Fluids: 02/16/19 Time of Last Intake of Fluids: 04:00 Last Oral Intake of Fluids Comment: sips with pills Date of Last Intake of Solid Food: 02/15/19 Time of Last Intake of Solid Foods: 18:00 Procedure Planning Contraindications for Sedation: none Current Medications Reviewed: Yes Notes The planned sedation has been discussed with the patient. Informed Consent was obtained. I have identified the patient, determined the appropriateness of sedation and have assessed the patient immediately prior to the procedure. All medicine(s) and interventions are by my order.
[2019-02-16] MEDS ORDERED: fentaNYL citrate 100 MCG/2 ML VIAL ONE (08:13)
[2019-02-16] MEDS ORDERED: MIDAZOLAM HCL 5 MG/ML 1 ML VIAL ONE (08:13)
[2019-02-16] MEDS ORDERED: CEFAZOLIN 250 MG/ML 1 GM VIAL ONE (08:14)
[2019-02-16] MEDS ORDERED: ISOPROTERENOL HCL 0.2 MG/ML 5 ML AMP IV ONE (10:06)
--- NOTE | 2019-02-16 11:33 | Post Anesthesia Assessment ---
Date of Service February 16, 2019 Post Sedation Assessment Vital Signs Temp Pulse Resp BP Pulse Ox 02/16/19 07:21 36.5 C 65 16 177/80 H 95 Recovery Score Activity: Moves 4 extremities Respiration: Deep Breath/Cough Circulation: +/-20% PreAnes Value Consciousness: Fully Awake Oxygen Saturation: > 92% On Room Air Discharge Sedation Level of Care: Fast Track Phase II Post Sedation Plan On clinical assessment, the patient appears to have tolerated the sedation without complications. Patient is recovering as anticipated. Patient will continue to be monitored by nursing and may be discharged when sedation discharge criteria are met per below protocol. Upon Completions of procedure and additional 15 minutes continue every 5 minute vital signs and the P.A.R. score; then discharge to a Phase I or Fast Track to Phase II per the following guidelines: * Discharge Patient to appropriate Phase II area if PAR is 8 or greater or return to pre- procedure baseline. The post - procedure orders will be as directed. * If PAR score is less than 8 or not return to pre-procedure baseline then patient will follow Phase I monitoring till PAR is reached for Phase II. The Phase I may be done in procedure room or may call to secure a Phase I area. * If naloxone or flumazenil are used for reversal, hold in Phase I for continued monitoring from when last reversal dose was given for a minimum of 60 minutes or longer pending the nurse and/or physician discretion of patient condition before discharge to Phase II. Please call the Sedation Physician to re-evaluate and complete post-note for discharge to Phase II area. Do NOT discharge from procedure sedation or Phase 1 until post- sedation evaluation note is complete by procedure /sedation MD Sedation Discharge Instructions to be given to the patient at discharge to home.
[2019-02-16] MEDS ORDERED: ACETAMINOPHEN 325 MG TAB PO PRN (11:34)
--- NOTE | 2019-02-16 11:34 | Operative Report ---
Post Operative Report Pre & Post Diagnosis Pre: SVT POST: AVNRT Operation Date: 02/16/19 08:00 <No data on this case meets the specified criteria> Procedure EPS radiofrequeny ablation, isoprel infusion, 3d mapping his and c/s os, dual chamber ppm reprogramming Operation Date: 02/16/19 08:00 <No data on this case meets the specified criteria> Surgeon Pam Bergeron, DO Inspector Aluminum Boat none Estimated Blood Loss 5 Findings Consistent with Post-Op Diagnosis Specimens none Description of Procedure see official report I attest to the content of the Intraoperative Record and any orders documented therein. Any exceptions are noted below.
[2019-02-16] MEDS ORDERED: ALBUTEROL HFA 8 GM INHALER INH PRN (11:35)
[2019-02-16] MEDS ORDERED: TRIAMCINOLONE ACET 0.1% CR 15 GM TUBE TOP PRN (11:35)
[2019-02-16] MEDS ORDERED: BENZONATATE 100 MG CAPSULE PO PRN (11:35)
--- NOTE | 2019-02-16 11:44 | Discharge Summary ---
Date of Service February 17, 2019 Admission HPI Per Admitting Provider pt admitted for elective EPS with possible ablation Admission Exam Per Admitting Provider aaox3, NAD NC/AT, EOMI Supple No JVD Nrl S1/S2, No murmur, atrial paced CTA b/l no w/r/r soft nt/nd no LE edema b/l skin intact no focal deficits Principal Diagnosis AVNRT s/p slow pathway modification Discharge Exam aaox3, NAD NC/AT, EOMI Supple No JVD Nrl S1/S2, No murmur, atrial paced CTA b/l no w/r/r soft nt/nd no LE edema b/l skin intact no focal deficits b/l groins soft no hematoma ENMT Mallampati Class: III Respiratory normal respiratory effort, lungs clear to auscultation Cardiovascular RRR, no murmur, no edema Discharge Data Allergies Allergy/AdvReac Type Severity Reaction Status Date / Time erythromycin base Allergy Intermediate STOMACH Verified 02/05/19 08:48 ISSUES Procedures Performed ECG: AP-VS Operation Date: 02/16/19 08:00 Actual Procedures p EPS + Ablation for SVT Flutter - Pam Bergeron DO Hospital Course (1) AVNRT (AV ida re-entry tachycardia): Total Time Total Time Spent Total Time Spent (In Minutes): 30 Total Time Includes: Examination of the Patient, Discharge Planning, Medication Reconciliation and Other Discharge Plan Discharge Items Patient Disposition: Home - Self-Care Reason For Visit: SUPRAVENTRICULAR TACHYCARDIA 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 Bergeron in 1 month Prescriptions: Continued atorvastatin 40 mg Tablet 40 mg PO QAM RF: 0 gabapentin 400 mg Capsule 400 mg PO TID RF: 0 prednisone 5 mg Tablet 5 mg PO QAM RF: 0 allopurinol 100 mg Tablet 100 mg PO QAM RF: 0 omeprazole 40 mg Capsule,Delayed Release(Dr/Ec) 40 mg PO QAM RF: 0 aspirin [Aspirin Low Dose] 81 mg Tablet,Delayed Release (Dr/Ec) 81 mg PO QAM RF: 0 triamcinolone acetonide 0.1 % Cream 1 applic TOPICAL BID PRN (Reason: DERMATITIS) RF: 0 prednisolone acetate 1 % Drops,Suspension 1 drp OPR QAM RF: 0 ranitidine HCl 150 mg Tablet 150 mg PO BID RF: 0 albuterol sulfate [ProAir HFA] 90 mcg/actuation Hfa Aerosol Inhaler 2 puff INHALATION Q4 PRN (Reason: Wheezing) RF: 0 Combigan 0.2-0.5 % Drops 1 drp OPHTHALMIC (EYE) BID RF: 0 cholecalciferol (vitamin D3) 2,000 unit Capsule 2,000 unit PO QAM RF: 0 Energy Focus 2 tab PO QAM RF: 0 benzonatate [Tessalon Perles] 100 mg Capsule 100 mg PO TID PRN (Reason: Cough) RF: 0 dorzolamide 2 % Drops 1 drp OPR BID RF: 0 diclofenac sodium [Voltaren] 1 % Gel 2 g TOPICAL QID PRN (Reason: Pain) RF: 0 vitamin B complex Tablet 1 tab PO QAM RF: 0 Discontinued diltiazem HCl 120 mg Capsule,Extended Release 24hr 120 mg PO QAM Qty: 30 RF: 5 Stand-Alone Forms: [facility]/Other Patient Handouts: Ablation Cardiac Dc, Catheter Ablation After Discharge Orders: Discharge Order (Routine); Ordered 02/17/19 Ordered By: Pam Bergeron Admission Data Admit Date/Time: 02/16/19 10:54 Attending Provider: Pam Bergeron Admit Provider: Pam Bergeron Primary Care Provider: Annika To Service: Telemetry Other Interventions: Discharge Summary Assessment (RN) Last Done: 02/17/19 09:21 DC Date/Time DO NOT enter until pt leaves facility: 02/17/19 09:50
[2019-02-16] MEDS ORDERED: CEFAZOLIN 1000MG 1,000 MG/7.5 ML SYR IV SCH (14:00)
[2019-02-16] MEDS: GABAPENTIN 400 MG CAP PO SCH ×2 (14:10→20:24)
[2019-02-16] MEDS: PATIENT'S HEIGHT AND/OR WEIGHT NEEDED SCH ×4 (17:08→19:02)
[2019-02-16] MEDS: TIMOLOL MALEATE 0.5% OP SOLN 5 ML BTL OP SCH (20:26)
[2019-02-16] MEDS: BRIMONIDINE TARTRATE 0.2% 5ML OP SCH (20:26)
[2019-02-16] MEDS: DORZOLAMIDE HCL 2% OPH SOLN 10 ML BTL OPR SCH (20:27)
[2019-02-17 05:30] LABS: BUN Creatinine Ratio 24.9 (10-20); Creatinine Clr Calc Pharmacy 42.2 ml/min; Est GFR (African American) 77.5; Est GFR (Non-African American) 66.8; Potassium 4.2 mmol/L (3.5-5.1)
[2019-02-17] MEDS: GABAPENTIN 400 MG CAP PO SCH (08:11)
[2019-02-17] MEDS: BRIMONIDINE TARTRATE 0.2% 5ML OP SCH (08:13)
[2019-02-17] MEDS: TIMOLOL MALEATE 0.5% OP SOLN 5 ML BTL OP SCH (08:13)
[2019-02-17] MEDS: DORZOLAMIDE HCL 2% OPH SOLN 10 ML BTL OPR SCH (08:14)
[2019-02-17] MEDS ORDERED: ATORVASTATIN 40 MG TAB PO SCH (09:00)
[2019-02-17] MEDS ORDERED: CHOLECALCIFEROL 1,000 UNITS TAB PO SCH (09:00)
[2019-02-17] MEDS ORDERED: PANTOprazole 40 MG TAB PO SCH (09:00)
[2019-02-17] MEDS ORDERED: ASPIRIN 81 MG ECTAB PO SCH (09:00)
[2019-02-17] MEDS ORDERED: predniSONE 5 MG TAB PO SCH (09:00)
[2019-02-17] MEDS ORDERED: prednisoLONE acetate 1% OP SUSP 5 ML BTL OPR SCH (09:00)
[2019-02-17] MEDS ORDERED: ALLOPURINOL 100 MG TAB PO SCH (09:00)
[2019-02-17] MEDS ORDERED: VITAMIN B COMPLEX TAB PO SCH (09:00)
[2019-02-17] MEDS ORDERED: [UNRECOGNIZED DRUG - OTHER] PO SCH (09:00)
--- NOTE | 2019-02-20 07:18 | Operative Report ---
DATE OF OPERATION: 02/16/2019 DATE OF PROCEDURE: 02/16/2019 PREOPERATIVE DIAGNOSIS: Supraventricular tachycardia. POSTOPERATIVE DIAGNOSIS: Supraventricular tachycardia. PROCEDURE: Electrophysiology study, 3D mapping of the His bundle and coronary sinus os, isuprel drug infusion, radiofrequency ablation of slow pathway modification, reprogramming and interrogation of a dual chamber rate responsive permanent pacemaker. SURGEON: Pam Bergeron DO ASSISTANTS: None. ANESTHESIA: Monitored conscious sedation administered under my supervision by Yokasta Lanza. Start time 0828 and end time 1123. Total of 4 mg of Versed, 100 mcg of fentanyl. INTRAVENOUS FLUIDS: 350 mL. BLOOD LOSS: 5 mL. ANTIBIOTICS: 1 gram of Ancef. IV CONTRAST: 30 mL. URINE OUTPUT: Not applicable. SPECIMENS: None. FINDINGS: See below. DRAINS: None. COMPLICATIONS: None. CONDITION: Stable. 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 She is unable to tolerate much AV ida blockers secondary to hypotension. 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 CONSENT: Consent was obtained prior to the patient going into electrophysiology lab. The patient was informed of risks, benefits and alternatives to the procedure. Risks include but not limited to sudden cardiac , cardiac arrhythmias, cerebrovascular accident, myocardial infarction, injury to the blood vessels, chamber of the heart or the stockbridge electrical system where she would be dependent on her pacemaker or dislodgement of her pacemaker leads, bleeding and infection. The patient understood these risks and agreed to the procedure as planned. Informed consent was obtained. DESCRIPTION OF THE PROCEDURE: The patient was brought into the electrophysiology lab in a fasting state. She was connected to continuous potato bucker. A timeout was performed to ensure patient's identity and procedure correctly. The patient was prepped and draped over the bilateral groins in normal surgical standard fashion. Monitored conscious sedation was given throughout the procedure for patient's comfort level. [place] precautions were maintained throughout the procedure. Of note, she also received prophylactic antibiotics prior to procedure. The dual chamber pacemaker was interrogated and reprogrammed prior to starting the procedure with the following findings: Her arrhythmia log did show multiple episodes of what looked to be AVNRT, most recent was a 40 minute episode on 01/30/2019 with an average heart rate of 164 beats per minute. Another episode about 10 minutes long when she had a few of this on her arrhythmia log. The leads were tested preop are as follows: The right atrial lead P waves are 0.3 millivolts. The right ventricular R waves are 6.9 millivolts. The right atrial lead impedance was 608 ohms and right ventricular impedance was 380 ohms. The right ventricular threshold was 2 volts at 0.4 milliseconds and the right atrial threshold was 1 volt at 0.4 milliseconds. The device was reprogrammed to VVI 40. A 10 mL of 1% lidocaine were given in the bilateral groins for local anesthesia. Then using modified Seldinger technique, venous access was obtained in the following manner. In the left femoral vein, I had two 7-Gambian sheaths and a 6-Gambian sheath; however, the guidewires went fine and I had decent blood flow back from flushing the sheath. When I tried to advance the catheter that would not go, so then I did a venogram which showed a minor dissection and the vessel being very small and a little tortuous, so I opted not to use that vessel. I then on the right side had three 6-Gambian sheaths and one 7-Gambian sheath initially. In the one 7-Gambian sheath, there was a coronary sinus Decapolar DF curved catheter positioned out in the coronary sinus. Through one of the 6-Gambian sheath, there was a quadripolar catheter positioned out in the high right atrium. Through another 6-Gambian sheath, there was a Hisser catheter positioned over the His bundle region. Through the last 6-Gambian sheath, there was a quadripolar Ryan catheter positioned out in the right ventricular apex. With all the catheters in place, an electrophysiology study was performed with the following findings. While the catheters in place, the electrophysiology study was performed with following findings: Sinus cycle length 1122. KY interval 200 milliseconds, QRS 90 milliseconds, QT 400 milliseconds, AH 100 milliseconds, HV 40 milliseconds, QT 390 milliseconds, AV Wenckebach was 620 milliseconds. The possible was the fast pathway ERP at 800/510 with an echo beat. The AV node ERP was 800/340 and atrial ERP was 800/250. The right ventricular ERP was 600/240 and 400/220. I was not able to induce any SVT giving up to triple extrastimuli from the high right atrium, so isuprel 2 was started. On isuprel 2, I eventually got triples brief episode of SVT, it was induced at 600/500, 520/510. The tachycardia cycle length was 308 milliseconds, the VA time was 98 milliseconds with concentric retrograde A, but it did not sustain. I was able to reproduce that a few times but nothing gave long enough to sustain and try to do V pacing. However, given the evidence of dual AV ida pathology, the evidence of SVT on her pacemaker interrogations that look to have the AVNRT for the VA time on the pacemaker is about 40 milliseconds. The presumed diagnosis of AVNRT was made. I then set up to do a slow pathway modification. Since I was only limited to the right femoral vein, I removed the right atrial Ryan catheter and swapped out that 6-Gambian sheath for a short 8-Gambian sheath, then I advanced the [place] curved 4 mm non-irrigated ablation catheter up into the heart. We did 3D mapping of the His bundle region and coronary sinus off, then I positioned the catheter in the low right atrial septum and gave a series of radiofrequency turcios at 35 baumann. We had good few turcios with a junctional rhythm, so I then placed the ablation catheter on the high right atrium and then performed a post-ablation electrophysiology study with the following findings: KY interval 208 milliseconds, QRS 90 milliseconds, QT 396 milliseconds, sinus cycle length 1048 milliseconds, AH 96 milliseconds, HV 42 milliseconds, AV Wenckebach 610 milliseconds, AV node ERP was 800/520, the atrial ERP was 800/220 and right ventricular ERP was 600/260 during the post-ablation 30-minute waiting. I continued to try to reinduce any brief SVT that I got before given up to triples from the high right atrium and even starting isuprel at 2 and giving triples and I was not able to induce any, so we deemed our ablation successful. All the catheters removed from the heart under fluoroscopic guidance. The sheaths were pulled and manual compression was used to establish hemostasis. Then, the pacemaker was reinterrogated and reprogrammed with the following findings: The right atrial threshold was 1 volt at 0.4 milliseconds. The right ventricular threshold was 1.75 volts at 0.4 milliseconds. The P waves are 0.4 millivolts and the R-waves were 9.8 millivolts. The impedance on the right atrium was 551 ohms and the RV impedance was 380 ohms. The device was reprogrammed back to MVP/R 60/130 and the right atrial sensitivity was changed from 0.3 millivolts to 1.5 millivolts. IMPRESSION: 1. Successful slow pathway modification. 2. Dual atrioventricular ida pathology. 3. Normal dissection of the right femoral vein. PLAN: Monitor patient overnight, 12-lead ECG, no heavy lifting or squatting for 1 week. She can stop her diltiazem and other AV ida blockers and I will follow up with her in 1 month's time. I attest to the content of the Intraoperative Record and any orders documented therein. Any exceptions are noted below. LIZBET
== END 2019-02-17 09:50 | disposition home or self-care (01) ==
LOC: ASU 06:51 → 1E 06:51

== ENCOUNTER 2019-03-08 07:22 | Inpatient (IN) ==
--- NOTE | 2019-03-01 14:31 | Anesthesiology Consultation ---
Date of Service March 01, 2019 Assessment & Plan (1) Encounter for pre-operative examination: Cardiology clearance 02/25/2019 (Elyssa): "Patient is at an acceptable moderate cardiovascular risk for gallbladder surgery; no further cardiac testing necessary." Chart Review Chart Review: Acceptable Risk for Surgery and Patient NOT seen in Pre Admission Testing History Surgery Operation Date: 03/08/19 08:55 Proposed Procedures p Laparoscopic Cholecystectomy, Possible Open or Cholangiogram - Anatoly Cuellar MD Height/Weight Height: 5 ft 1 in Weight: 67.585 kg Allergies Allergy/AdvReac Type Severity Reaction Status Date / Time erythromycin base Allergy Intermediate STOMACH Verified 03/01/19 09:25 ISSUES Medications Home Medications Medication Instructions Recorded Confirmed Last Taken Combigan 1 drp OPHTHALMIC (EYE) BID 10/11/18 03/01/19 02/05/19 06:00 Energy Focus 2 tab PO QAM 10/11/18 03/01/19 02/04/19 07:00 albuterol sulfate [ProAir HFA] 2 puff INHALATION Q4 PRN 10/11/18 03/01/19 Unknown allopurinol 100 mg PO QAM 10/11/18 03/01/19 02/04/19 08:00 aspirin [Aspirin Low Dose] 81 mg PO QAM 10/11/18 03/01/19 02/04/19 08:00 atorvastatin 40 mg PO QAM 10/11/18 03/01/19 02/04/19 08:00 cholecalciferol (vitamin D3) 2,000 unit PO QAM 10/11/18 03/01/19 02/04/19 08:00 gabapentin 400 mg PO BID 10/11/18 03/01/19 02/04/19 19:00 omeprazole 40 mg PO QAM 10/11/18 03/01/19 02/05/19 06:00 prednisolone acetate 1 drp OPR QAM 10/11/18 03/01/19 02/04/19 06:00 prednisone 5 mg PO QAM 10/11/18 03/01/19 02/04/19 08:00 ranitidine HCl 150 mg PO BID 10/11/18 03/01/19 02/04/19 19:00 triamcinolone acetonide 1 applic TOPICAL BID PRN 10/11/18 03/01/19 Unknown benzonatate [Tessalon Perles] 100 mg PO TID PRN 12/29/18 03/01/19 Unknown diclofenac sodium [Voltaren] 2 g TOPICAL QID PRN 12/29/18 03/01/19 Unknown dorzolamide 1 drp OPR BID 12/29/18 03/01/19 02/04/19 06:00 vitamin B complex 1 tab PO QAM 01/24/19 03/01/19 02/04/19 08:00 Past Medical History Medical History Aortic stenosis Moderate -- per 09/2018 echo, JOSIAS 1.6 cm, MG 27.1 SVT (supraventricular tachycardia) Likely AVNRT, S/P ablation @ [facility] 02/16 with Elyssa. 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 Asthma "mild persistent" Spinal stenosis GERD (gastroesophageal reflux disease) Osteoporosis Dyslipidemia Urinary incontinence Osteoarthritis HTN (hypertension) Blind LEFT Cardiac murmur 10/12/18 echo shows moderate aortic stenosis Glaucoma RIGHT EYE Gout Macular degeneration RIGHT EYE Past Surgical History Surgical History H/O breast biopsy "benign" - LEFT H/O colonoscopy History of ERCP 02/05/19 History of cardiac radiofrequency ablation 02/16/2019 [facility] for SVT Hx of cardiac pacemaker PLACED 09/2018 for TBS - [employer] - LAST CHECKED 12/2018 Hx of hysterectomy Hx of sinus surgery Past Anesthesia History ERCP 02/05/19 @ [facility] = MAC 3, ETT 7.0, grade view I with cricoid pressure, atraumatic intubation. Social History Smoking Status: Never smoker Do You Dip or Chew Tobacco: No Hx Alcohol Use: No Hx Substance Use: No substance use type: does not use Testing Laboratory Results 01/24/19 WBC: 8.79 H/H: 12.6/36.5 PLATELETS: 243 PT: 10.9 PTT: 25.9 INR: 1.1 02/17/19 SODIUM: 139 POTASSIUM: 4.2 CHLORIDE: 108 CO2: 25 BUN: 20 CREATININE: 0.79 GLUCOSE: 92 Electrocardiogram Date: 02/16/19 Atrial paced rhythm at 60 bpm with prolonged AV conduction. Chest X-Ray Date: 01/24/19 Findings: + NAD Echocardiogram Date: 10/12/18 EF: 60-65% Normal LV chamber size with mild concentric LVH. Normal LV systolic function. No segmental left ventricular wall motion abnormality's are noted. Grade 1 diastolic dysfunction. Poorly visualized, heavily calcified aortic valve with reduced systolic excursion. Moderate aortic stenosis. JOSIAS 1.6 cm, aortic valve mean gradient 27.1 mmHg. The left ventricular wall motion is normal. Other Testing Pacer Check 11/27/18 [employer], implanted 10/13/18 Pacing burden: 85.7% AP, 0.7% RV paced Mode: AAIR <=> DDDR Battery: 3.19 volts, estimated longevity of 14.5 years. Magnet rate of 85 bpm. Impression: normal dual chamber pacemaker function. Stable pacing and sensing thresholds.
[~2019-03-08 07:22] MED LIST changes: -CEFAZOLIN 1000MG 1,000 MG/7.5 ML SYR IV SCH; +CEFAZOLIN 2000MG 2,000 MG/15 ML SYR IV SCH; +LR 15ML/HR IV SCH
[2019-03-08] MEDS ORDERED: CEFAZOLIN 2000MG 2,000 MG/15 ML SYR IV ONE (08:24)
--- NOTE | 2019-03-08 08:24 | History & Physical Bridge Note ---
Date of Service March 08, 2019 History & Physical Bridge Note I have examined the patient, reviewed the History & Physical and in the interval since the performance of the History & Physical I have noted the following changes of clinical significance: no changes noted
[2019-03-08] MEDS ORDERED: ONDANSETRON INJ 2 MG/ML 2 ML VIAL ONE (08:43)
[2019-03-08] MEDS ORDERED: ETOMIDATE 2 MG/ML 20 ML VIAL IV ONE (08:43)
[2019-03-08] MEDS ORDERED: BACITRACIN OINT 15 GM TUBE ONE (08:43)
[2019-03-08] MEDS ORDERED: fentaNYL citrate 100 MCG/2 ML VIAL ONE (08:43)
[2019-03-08] MEDS ORDERED: NEOSTIGMINE METHYLSULFATE 5 MG/5 ML SYR ONE (08:43)
[2019-03-08] MEDS ORDERED: BUPIVACAINE 0.5 % 5 MG/1 ML MPF 30ML VIAL ONE (08:43)
[2019-03-08] MEDS ORDERED: CISATRACURIUM BESYLATE IV SOLN 2 MG/ML 10 ML VIAL IV ONE (08:43)
[2019-03-08] MEDS ORDERED: LIDOCAINE HCL 1% 20 ML VIAL ONE (08:43)
[2019-03-08] MEDS ORDERED: GLYCOPYRROLATE 0.2 MG/ML VIAL ONE (08:43)
[2019-03-08] MEDS ORDERED: DEXAMETHASONE SOD INJ 4 MG/ML VIAL ONE (08:43)
[2019-03-08] MEDS ORDERED: FLUMAZENIL 0.1 MG/1 ML 10 ML VIAL IV PRN (09:43)
[2019-03-08] MEDS ORDERED: NALOXONE HCL 0.4 MG/1 ML VIAL/CARP IV PRN (09:43)
[2019-03-08] MEDS ORDERED: ATROPINE SULFATE 0.1 MG/ML 10ML SYR IV PRN (09:43)
[2019-03-08] MEDS ORDERED: fentaNYL citrate 100 MCG/2 ML VIAL IV PRN (09:43)
[2019-03-08] MEDS ORDERED: PROMETHAZINE HCL 12.5 MG in SODIUM CHLORIDE 0.9% 50 ML IV PRN (09:43)
[2019-03-08] MEDS ORDERED: ePHEDrine sulfate 50 MG/ML AMP IV PRN (09:43)
[2019-03-08] MEDS ORDERED: ONDANSETRON INJ 2 MG/ML 2 ML VIAL IV PRN (09:43)
[2019-03-08] MEDS ORDERED: PHENYLEPHRINE HCL 10 MG/ML VIAL ONE (09:59)
--- NOTE | 2019-03-08 10:05 | Post Operative Brief Note ---
Immediate Post Op Note v1 Date of Surgery March 08, 2019 Pre & Post Diagnosis Operation Date: 03/08/19 09:00 Pre-Op Diagnosis: chronic cholecystitis, cholelithiasis, post-op diagnosis: chronic cholecystitis, cholelithiasis Procedure Operation Date: 03/08/19 09:00 Actual Procedures p Laparoscopic Cholecystectomy, Possible Open or Cholangiogram(Not Applicable) - Anatoly Cuellar MD Surgeon Anatoly Cuellar MD Fishery Biologist instructor adjunct surgical technician Estimated Blood Loss 15 Findings Consistent with Post-Op Diagnosis Fluids 500ml Specimens gallbladder Anesthesia Type General Complications none Disposition Accompanied Patient To Recovery: Yes Disposition: Recovery Room Overlapping Procedure I was immediately available: during the entire case.
--- NOTE | 2019-03-08 10:55 | Anesthesiology Progress Note ---
Date of Service March 08, 2019 Anesthesia Post Procedure Vital Signs Vital Signs: Temp Pulse Pulse Resp BP Pulse Ox 03/08/19 10:41 36.6 C 60 18 143/73 H 100 03/08/19 10:30 37.0 C 60 15 150/83 H 100 03/08/19 10:20 37.0 C 60 14 153/85 H 99 03/08/19 10:14 37.0 C 63 15 165/85 H 100 03/08/19 08:11 36.4 C L 65 20 159/82 H 96 Transfer of Care Handoff Completed per policy Notes Mental Status: alert / awake / arousable Patient Amnestic to Procedure: Yes Nausea / Vomiting: adequately controlled Pain: adequately controlled Airway Patency, RR, SpO2: stable & adequate BP & HR: stable & adequate Hydration State: stable & adequate Anesthetic Complications: no major complications apparent
[2019-03-08] MEDS ORDERED: DICLOFENAC SOD 1% GEL 100 GM TUBE PRN (11:21)
[2019-03-08] MEDS ORDERED: BENZONATATE 100 MG CAPSULE PO PRN (11:21)
[2019-03-08] MEDS ORDERED: TRIAMCINOLONE ACET 0.1% CR 15 GM TUBE TOP PRN (11:21)
[2019-03-08] MEDS ORDERED: ALBUTEROL HFA 8 GM INHALER INH PRN (11:21)
[2019-03-08] MEDS ORDERED: HYDROmorphone INJ 0.5 MG/0.5 ML SYR IV PRN (11:21)
--- NOTE | 2019-03-08 12:29 | Hospitalist Consultation ---
Date of Consultation March 08, 2019 Assessment & Plan (1) Cholelithiasis: s/p elective laparoscopic cholecystectomy surgery done today by dr. Cuellar No post-op complication Continue pain control Clear liquid diet as per surgery incentive spirometry Monitor CBC (2) AVNRT (AV ida re-entry tachycardia): (3) SVT (supraventricular tachycardia): S/P ablation Stable (4) Darren-tachy syndrome: S/P pacemaker Stable DVT px on Lovenox Disposition As per surgery History of Present Illness Reason for Consultation: Medical management Attending Physician: Anatoly Cuellar MD History of Present Illness 88-year-old female that has a past medical history including asthma, spinal stenosis, GERD, osteoporosis, dyslipidemia, osteoarthritis, sacroiliac inflammation, hypertension, s/p tachy-darren symptoms s/p pacemaker, SVT and PAT s/p ablation done, cholelithiasis with s/p ERCP done recently had elective laparoscopic cholecystectomy surgery done today by dr. Cuellar. Pt said that she was having recurrent nausea and abdominal discomfort associated with bloating after meal. [facility] hospitalist consulted for medical management. Pt said that she feels ok. She said that she is not having any pain. Denies any chest pain, palpitation, dizziness, and SOB. Allergies Allergy/AdvReac Type Severity Reaction Status Date / Time erythromycin base AdvReac Intermediate STOMACH Verified 03/08/19 08:00 ISSUES Home Medications Home Medications Medication Instructions Recorded Confirmed Type Combigan 1 drp OPHTHALMIC (EYE) BID 10/11/18 03/08/19 History Energy Focus 2 tab PO QAM 10/11/18 03/08/19 History albuterol sulfate [ProAir HFA] 2 puff INHALATION Q4 PRN 10/11/18 03/08/19 History allopurinol 100 mg PO QAM 10/11/18 03/08/19 History aspirin [Aspirin Low Dose] 81 mg PO QAM 10/11/18 03/08/19 History atorvastatin 40 mg PO QAM 10/11/18 03/08/19 History cholecalciferol (vitamin D3) 2,000 unit PO QAM 10/11/18 03/08/19 History gabapentin 400 mg PO BID 10/11/18 03/08/19 History omeprazole 40 mg PO QAM 10/11/18 03/08/19 History prednisolone acetate 1 drp OPR QAM 10/11/18 03/08/19 History prednisone 5 mg PO QAM 10/11/18 03/08/19 History ranitidine HCl 150 mg PO BID 10/11/18 03/08/19 History triamcinolone acetonide 1 applic TOPICAL BID PRN 10/11/18 03/01/19 History benzonatate [Tessalon Perles] 100 mg PO TID PRN 12/29/18 03/01/19 History diclofenac sodium [Voltaren] 2 g TOPICAL QID PRN 12/29/18 03/01/19 History dorzolamide 1 drp OPR BID 12/29/18 03/08/19 History vitamin B complex 1 tab PO QAM 01/24/19 03/08/19 History Patient History Social History Preferred Language: [place] Communication Ability: Effective [employer] Required: No Beliefs That Will Affect Care: None Current Living Situation: Alone Current Living Situation Comment: daughter does heavy cleaning current occupational status: unemployed Other Information That Helps Us Care for You: No Feels Safe at Home: Yes Safety Concerns: Feels Safe At This Time Smoking Status: Never smoker Do You Dip or Chew Tobacco: No ; Second Hand Exposure: No ; Hx Alcohol Use: No Hx Substance Use: No during the past year weight has: remained stable Review of Systems Review of Systems: All systems reviewed & are unremarkable except as noted in HPI & below Physical Exam Physical Exam: General- No acute distress Head- atraumatic Eyes- PERRL, EOMI, ENT- oropharynx clear Neck- supple, no JVD Lungs- clear to auscultation Heart- regular rhythm; +systolic murmur Abdomen- normal bowel sounds, +tender with palpation Extremities- no calf tenderness Neuro- alert, oriented x 3; PERRL, EOMI; no facial palsy; no dysarthria Skin- warm & dry Results & Data Vital Signs (Past 12 Hours) Vital Signs Temp Pulse Pulse Resp BP Pulse Ox 03/08/19 12:05 36.4 C L 60 15 155/82 H 98 03/08/19 11:46 64 18 166/81 H 92 03/08/19 10:50 36.4 C L 62 16 148/75 H 98 03/08/19 10:41 36.6 C 60 18 143/73 H 100 03/08/19 10:30 37.0 C 60 15 150/83 H 100 03/08/19 10:20 37.0 C 60 14 153/85 H 99 03/08/19 10:14 37.0 C 63 15 165/85 H 100 03/08/19 08:11 36.4 C L 65 20 159/82 H 96
[2019-03-08 13:14] LABS: Hematocrit (blood only) 36.3 % (37-47); Hemoglobin 12.2 g/dL (12.0-16.0); Mean Corpuscular Hgb Conc 33.6 g/dL (32-36); Mean Platelet Volume 10.3 fL (7.4-10.4); Platelet Count 188 K/uL (130-400); RDW Coefficient of Variation 13.4 % (11.5-14.5); RDW Standard Deviation 46.4 fL (36.4-46.3); Red Blood Count 3.78 M/uL (4.2-5.4)
[2019-03-08 13:26] LABS: INR 1.1 (0.9-1.1); Prothrombin Time 10.9 Seconds (9.0-12.0)
--- NOTE | 2019-03-08 13:28 | Operative Report ---
DATE OF OPERATION: 03/08/2019 PREOPERATIVE DIAGNOSES: Chronic cholecystitis, cholelithiasis. POSTOPERATIVE DIAGNOSES: Chronic cholecystitis, cholelithiasis. PROCEDURE: Laparoscopic cholecystectomy. SURGEON: Anatoly Cuellar MD. ANESTHESIA: General. ESTIMATED BLOOD LOSS: About 15 mL. FINDINGS: Chronic cholecystitis, cholelithiasis. COMPLICATIONS: None. INDICATIONS FOR THE PROCEDURE: This is an 88-year-old gentleman who presented with symptomatic cholecystitis and cholelithiasis. The patient will be required to do laparoscopic cholecystectomy, possible open, possible cholangiogram. I did talk to the patient about the benefit and risk, alternate procedure. I indicated the risks may include but are not limited such as bleeding, infection, injury to common bile duct, injury to bowel, may need ERCP, myocardial infarction, DVT, stroke, even . The patient understands. She signed informed consent and I answered all questions. DETAILS OF PROCEDURE: We brought the patient to the OR, put the patient in the supine position. The patient received SCD on bilateral legs to prevent DVT. Also, patient received 2 grams Ancef IV for prophylactic antibiotic. The patient received general anesthesia without difficulties. Abdomen was prepped and draped in routine sterile fashion. After time out, I injected local anesthesia by using 1% lidocaine mixed with 0.5% Marcaine just above umbilicus. Then I made a small incision just above umbilicus, opened fascia and opened peritoneum under direct vision, put a Rene trocar in, connected to CO2 to create pneumoperitoneum. Flow rate at 6 liter per minute. Pressure not more than 14 mmHg. Once we got a nice pneumoperitoneum, we put the camera in, looked around the abdomen shows normal finding on the liver. However, the gallbladder shows chronic cholecystitis. Once confirmed diagnosis, we put another three 5 mm trocar on the right upper quadrant. Once all trocars in, we put a grasper to hold the base of the gallbladder, put direction to the diaphragm, put another grasper to hold the pouch of gallbladder, put latter to expunge triangle of Calot. The cystic duct was identified and mobilized. I put two 5 mm metal clip on the proximal cystic duct, one on the distal cystic duct. I then used a scissor for transection of cystic duct. Rechecked and no bile leak and the cystic artery was identified and mobilized. I put two 5 mm metal clip on the proximal cystic artery, one on the distal cystic duct artery, and used a scissor for transection of cystic duct. Rechecked, no active bleeding. Then we used the Bovie to take down gallbladder from the liver bed. Rechecked, no active bleeding, no bile leak from the liver bed. Then we removed gallbladder through the catch bag, then we reinserted Rene trocar in, connected to CO2 to create pneumoperitoneum, and again looked around abdomen, no bile leak and no active bleeding from the liver bed. Then we removed all trocar under direct vision. No active bleeding from the trocar sites. Pneumoperitoneum was released. Then I closed the umbilical incision, fascial layer by using #1 Vicryl [id number] x2, closed subcutaneous layer by using 2-0 Vicryl interrupted, closed skin by using 4-0 Vicryl continuous running, closed another three 5 mm trocar site of skin only by using 4-0 Vicryl. Then we put the dressing on. The patient tolerated the procedure well. All instrument, needle and sponge count were correct x2 at the end of the case. The specimen sent to pathology. The patient transferred to recovery room in stable condition. After procedure, the patient will stay in the hospital overnight. The patient and family member agreed. I attest to the content of the Intraoperative Record and any orders documented therein. Any exception s are noted below.
[2019-03-08 13:40] LABS: Creatinine Clr Calc Pharmacy 41.9 ml/min; Est GFR (African American) 78.7; Est GFR (Non-African American) 67.9
[2019-03-08] MEDS: LACTATED RINGER'S 1,000 ML IV SCH ×2 (13:45→23:39)
[2019-03-08] MEDS: ATORVASTATIN 40 MG TAB PO SCH (13:45)
[2019-03-08] MEDS: OXYCODONE/ACETAMINOPHEN 5mg/325mg TAB PO PRN ×2 (14:32→20:06)
[2019-03-08] MEDS: BRIMONIDINE TARTRATE OPR SCH (20:00)
[2019-03-08] MEDS: TIMOLOL OPR SCH (20:00)
[2019-03-08] MEDS: [UNRECOGNIZED DRUG - OTHER] OPR SCH (20:00)
[2019-03-08] MEDS: GABAPENTIN 400 MG CAP PO SCH (20:02)
[2019-03-08] MEDS: DORZOLAMIDE HCL 2% OPH SOLN 10 ML BTL OPR SCH (20:03)
[2019-03-09] MEDS: OXYCODONE/ACETAMINOPHEN 5mg/325mg TAB PO PRN (06:30)
[2019-03-09] MEDS: GABAPENTIN 400 MG CAP PO SCH (07:36)
[2019-03-09] MEDS: ATORVASTATIN 40 MG TAB PO SCH (07:36)
[2019-03-09] MEDS: DORZOLAMIDE HCL 2% OPH SOLN 10 ML BTL OPR SCH (07:37)
[2019-03-09] MEDS: BRIMONIDINE TARTRATE OPR SCH (07:38)
[2019-03-09] MEDS: [UNRECOGNIZED DRUG - OTHER] OPR SCH (07:38)
[2019-03-09] MEDS: TIMOLOL OPR SCH (07:38)
[2019-03-09 08:05] VITALS: BP 146/53; PULSE 66; TEMP 97.7; O2SAT 95
[2019-03-09] MEDS ORDERED: ENOXAPARIN INJ 40 MG/0.4 ML SYR SQ SCH (09:00)
[2019-03-09] MEDS ORDERED: [UNRECOGNIZED DRUG - OTHER] PO SCH (09:00)
[2019-03-09] MEDS ORDERED: ALLOPURINOL 100 MG TAB PO SCH (09:00)
[2019-03-09] MEDS ORDERED: CHOLECALCIFEROL 1,000 UNITS TAB PO SCH (09:00)
[2019-03-09] MEDS ORDERED: ASPIRIN 81 MG ECTAB PO SCH (09:00)
[2019-03-09] MEDS ORDERED: predniSONE 5 MG TAB PO SCH (09:00)
[2019-03-09] MEDS ORDERED: VITAMIN B COMPLEX TAB PO SCH (09:00)
[2019-03-09] MEDS ORDERED: prednisoLONE acetate 1% OP SUSP 5 ML BTL OPR SCH (09:00)
[2019-03-09] MEDS ORDERED: PANTOprazole 40 MG TAB PO SCH (09:00)
[2019-03-09 09:29] LABS: Eosinophils # (auto) 0.06 K/uL (0-0.5); Eosinophils % (auto) 0.9 %; Hematocrit (blood only) 33.8 % (37-47); Hemoglobin 11.4 g/dL (12.0-16.0); Immature Granulocytes # (auto) 0.01 K/uL (0.00-0.02); Immature Granulocytes % (auto) 0.1 %; Lymphocytes % (auto) 22.7 %; Mean Corpuscular Hgb Conc 33.7 g/dL (32-36); Monocytes # (auto) 0.73 K/uL (0.11-0.59); Monocytes % (auto) 10.4 %; Neutrophils # (auto) 4.65 K/uL (1.4-6.5); Neutrophils % (auto) 65.9 %; Platelet Count 191 K/uL (130-400); RDW Coefficient of Variation 13.1 % (11.5-14.5); RDW Standard Deviation 45.4 fL (36.4-46.3); Red Blood Count 3.52 M/uL (4.2-5.4); White Blood Count 7.05 K/uL (4.8-10.8)
--- NOTE | 2019-03-09 09:47 | Surgery Progress Note ---
Date of Service March 09, 2019 Assessment & Plan (1) S/P cholecystectomy: POD # 1 s/p laparoscopic cholecystectomy -vitals stable, afebrile - post op pain controlled - no n/v, alva diet Plan: Discharge home Discharge instructions reviewed follow-up in office on Mar 31 as already scheduled Rx for Percocet every 6 hours only as needed for severe pain Dr. Cuellar has seen patient, agrees with above. Subjective patient feeling well tolerating regular diet, no n/v pain controlled with Percocet oob to chair for 3 hours yesterday urinating without difficulty Physical Exam Constitutional: WD/WN, vitals as above Gastrointestinal (Abdomen): Inspection/Auscultation: abdomen normal to inspection; abdomen not distended Percussion/Palpation: abdomen soft; abdomen nontender, no guarding and abdomen not rigid Psychiatric: A+Ox3, euthymic affect Results & Data Vital Signs (Past 12 Hours) Vital Signs Temp Pulse Resp BP Pulse Ox 03/09/19 07:19 36.5 C 66 16 146/53 H 95 03/09/19 04:00 36.8 C 63 16 128/77 96 03/08/19 23:58 36.5 C 60 15 132/79 96
[2019-03-09 09:54] LABS: Albumin Level 3.3 gm/dl (3.4-5.0); BUN Creatinine Ratio 17.4 (10-20); Creatinine Clr Calc Pharmacy 43.6 ml/min; Est GFR (African American) 82.5; Est GFR (Non-African American) 71.2; Potassium 3.9 mmol/L (3.5-5.1)
[2019-03-09 09:57] LABS: Albumin Globulin Ratio 0.9 (0.9-2); Bilirubin,Total 0.7 mg/dl (0.2-1); Globulin 3.6 gm/dl (2.5-4.0); Total Protein 6.9 gm/dl (6.4-8.2)
--- NOTE | 2019-03-10 16:09 | Discharge Summary ---
Date of Service March 10, 2019 Admission HPI Per Admitting Provider Patient presented to [facility] for outpatient elective cholecystectomy for recurrent nausea and abdominal pain post prandial. Patient was consent for laparoscopic possible open cholecystectomy by Dr. Cuellar at [facility]. Principal Diagnosis Ruq abdominal pain post prandial bloating Discharge Data Allergies Allergy/AdvReac Type Severity Reaction Status Date / Time erythromycin base AdvReac Intermediate STOMACH Verified 03/08/19 16:00 ISSUES Consultations 03/08/19 10:22 Consult Hospitalist Routine Procedures Performed Operation Date: 03/08/19 09:00 Actual Procedures p Laparoscopic Cholecystectomy(Not Applicable) - Anatoly Cuellar MD Hospital Course (1) S/P cholecystectomy: Patient taken to operating room for laparoscopic possible open cholecystectomy by Dr. Cuellar. Patient tolerated procedure well and was transferred to recovery and then to medical/surgical floor for post op care. Diet was advance to clear liquids and then as tolerated, PO Percocet with breakthrough IV Dilaudid as needed for pain, IV Zofran prn nausea, activity as tolerated, and restarted her home medications. Hospitalist was consulted for postoperative comanagement given comorbidities. No changes in orders per hospitalist team. POD # 1 vitals, stable, afebrile, pain moderate but controlled with percocet. Tolerated regular diet for breakfast, no n/v. Patient was ready to go home. Patient was discharged boone on POD # 1 s/p laparoscopic cholecystectomy in stable condition. Total Time Total Time Spent Total Time Spent (In Minutes): 20 Total Time Includes: Examination of the Patient, Discharge Planning and Medication Reconciliation Discharge Plan Discharge Items Patient Disposition: Home - Self-Care Reason For Visit: Symptomatic Cholelithiasis Discharge Diagnosis: same Discharge Goals: Decrease discomfort and Improve function Activity: Per 'Additional Instructions' section Non-emergency contact: Surgeon Call non-emergency contact if: your symptoms worsen, your pain is not controlled, your pain is concerning for you, you have a fever, your temperature is above 101, your wound has increased redness, your wound has increased drainage and your wound pain has increased Follow-up/Referrals: Annika To MD [Primary Care Provider] - Diet: Regular Addtl Provider Instructions: No heavy lifting over 20 pounds for 3-4 weeks No strenuous activity until cleared by surgeon No submerging incisions underwater for 2 weeks (no bathing, swimming, or hot tubs) No driving while taking narcotic pain medication or until you are pain free You may shower in 3 days, sponge bath and wash hair in meantime Keep dressings on for 3 days and then remove and shower. Leave steri strips on incisions for 7 days and then remove. Walking and light activity is encouraged multiple times a day to prevent blood clots from forming in your legs. You will be given prescription for narcotic pain medication only for severe pain. Take as directed. You may take extra strength Tylenol or Ibuprofen as needed for mild pain -650 mg of Tylenol every 6 hours as needed - 600 mg of Ibuprofen every 6 hours as needed Recommend drinking plenty of fluids and may take OTC stool softener (Colace) while taking pain medication to prevent constipation. Follow-up in surgical office in 2 weeks, please call office at [phone] if you do not already have an appointment. Prescriptions: New oxycodone-acetaminophen 5-325 mg tablet 1 tab PO Q6H PRN (Reason: pain) Qty: 10 RF: 0 Continued atorvastatin 40 mg Tablet 40 mg PO QAM RF: 0 gabapentin 400 mg Capsule 400 mg PO BID RF: 0 prednisone 5 mg Tablet 5 mg PO QAM RF: 0 allopurinol 100 mg Tablet 100 mg PO QAM RF: 0 omeprazole 40 mg Capsule,Delayed Release(Dr/Ec) 40 mg PO QAM RF: 0 aspirin [Aspirin Low Dose] 81 mg Tablet,Delayed Release (Dr/Ec) 81 mg PO QAM RF: 0 triamcinolone acetonide 0.1 % Cream 1 applic TOPICAL BID PRN (Reason: DERMATITIS) RF: 0 prednisolone acetate 1 % Drops,Suspension 1 drp OPR QAM RF: 0 ranitidine HCl 150 mg Tablet 150 mg PO BID RF: 0 albuterol sulfate [ProAir HFA] 90 mcg/actuation Hfa Aerosol Inhaler 2 puff INHALATION Q4 PRN (Reason: Wheezing) RF: 0 Combigan 0.2-0.5 % Drops 1 drp OPHTHALMIC (EYE) BID RF: 0 cholecalciferol (vitamin D3) 2,000 unit Capsule 2,000 unit PO QAM RF: 0 Energy Focus 2 tab PO QAM RF: 0 benzonatate [Tessalon Perles] 100 mg Capsule 100 mg PO TID PRN (Reason: Cough) RF: 0 dorzolamide 2 % Drops 1 drp OPR BID RF: 0 diclofenac sodium [Voltaren] 1 % Gel 2 g TOPICAL QID PRN (Reason: Pain) RF: 0 vitamin B complex Tablet 1 tab PO QAM RF: 0 Stand-Alone Forms: [employer], [facility] [employer]/Other Patient Handouts: Cholecystectomy Laparoscopic Discharge Orders: Discharge Order (Routine); Ordered 03/09/19 Ordered By: Kenyetta Douglas Admission Data Admit Date/Time: 03/08/19 10:20 Attending Provider: Anatoly Cuellar Admit Provider: Anatoly Cuellar Primary Care Provider: Annika To Other Providers: Thang Rizzo Service: Surgical Services Other Interventions: Discharge Summary Assessment (RN) Last Done: 03/09/19 10:57 Pending Studies at Discharge: Yes (Gallbladder pathology, will be reviewed at follow-up visit) DC Date/Time DO NOT enter until pt leaves facility: 03/09/19 12:04
== END 2019-03-09 12:04 | disposition home or self-care (01) | DRG 419 ==
LOC: ASU 07:22 → 3N 10:20
DX: K80.10 Calculus of gallbladder with chronic cholecystitis without obstruction; Z79.899 Other long term (current) drug therapy; Z79.82 Long term (current) use of aspirin; I10 Essential (primary) hypertension; K21.9 Gastro-esophageal reflux disease without esophagitis; E78.5 Hyperlipidemia, unspecified; Z79.52 Long term (current) use of systemic steroids; Z95.0 Presence of cardiac pacemaker